=== PATIENT | male | born 1950 | race Caucasian/White ===

== ENCOUNTER → 2022-06-12 09:12 | Outpatient (BNVA) | payer OTHER, SELFPAY | PROVIDERS: PCP Family Medicine; Visit Provider Student in an Organized Health Care Education/Training Program | DX: Z13.89 Encounter for screening for other disorder (principal) ==

== ENCOUNTER 2023-01-29 08:08 | Outpatient (AMB) | payer OTHER, SELFPAY ==
--- NOTE | 2023-01-29 08:12 | A.OFFVIS_ITS ---
Intake Vital Signs 01/29/23 08:14 Height 5 ft 8 in Weight 165 lb 9.074 oz BMI 25.2 BP 122/88 Blood Pressure Location Rt brachial Position Sitting Pulse 53 Pulse Source Pulse Oximeter Temp 98.2 F Temp Source Skin Pulse Oximetry (%) 99 Oxygen Delivery Method Room Air Intake Visit Reasons: RA/sarcoidosis Intake Note: Here for RA and sarcoidosis follow up. c/o neck pain post PT. ? nerve related Head Operator Sulfide Required: No Accompanied by: Self / Same As Patient Allergies Penicillins Allergy (Severe, Verified 01/29/23 08:12) Anaphylaxis terbinafine [From Lamisil] Allergy (Severe, Verified 01/29/23 08:12) Anaphylaxis amitriptyline Allergy (Intermediate, Verified 01/29/23 08:12) emotional blunting amoxicillin Allergy (Intermediate, Verified 01/29/23 08:12) Hives fluconazole Allergy (Intermediate, Verified 01/29/23 08:12) Muscle cramps gabapentin Allergy (Intermediate, Verified 01/29/23 08:12) Confusion pravastatin Allergy (Intermediate, Verified 01/29/23 08:12) myalgia Medication List - Last Reconciled 01/29/23 by Clint Mckoy MD acetaminophen (Tylenol Extra Strength) 1,000 mg PO Q6H PRN cholecalciferol (vitamin D3) 25 mcg PO DAILY cyclobenzaprine 5 mg PO TID PRN famotidine (Pepcid) 10 mg PO QAM folic acid 1 mg PO DAILY ibuprofen 600 mg PO Q8H PRN lactobacillus combination no.9 (Adult 50 Plus Probiotic) 4,000 mmu cells PO DAILY multivitamin 1 tab PO DAILY omeprazole 10 mg PO BID polyethylene glycol 3350 (Miralax) 17 grams PO DAILY rituximab 100 mg IV .every 4 months HPI HPI Comments History of Present Illness Details This is a 72 year old male with undifferentiated autoimmune connective tissue disease presents for follow-up. Patient received rituximab infusion back in July of 2022 and another infusion in October of 2022. Feels well overall in terms of his peripheral arthritis. Rituximab is ordered by his PCP. Infusions were uneventful. States that 2 months ago he was doing physical therapy and he had abrupt onset of neck pain radiating up to his head causing headaches. He was evaluated by by near [employer] [facility], a CT scan was done and he also received trigger point injections which were mildly helpful. He states that his initial pain was around 8-9 currently his pain is around 3. He states that he gets numbness in his shoulders when sleeping at night. Initial history: This is a 71-year-old male with a past medical history of RA/sarcoidosis, psoriasis, melanoma s/p resection who presents for initial consultation. His previous pool servicer Dr. Soto left the practice. Patient states that since age 26 he would have to attacks of joint pain and stiffness of his hands as well as muscle aches, pains, weakness. [place] At some point more than 10 years ago he was found to have lung pathology, he eventually had a bronchoscopy which showed sarcoidosis. Patient states he has been on numerous DMARDs including methotrexate which was ineffective sulfasalazine which was also ineffective. He states that he also could not tolerate multiple medications due to allergic side effects. The only medication that was helping was rituximab. States he has been on rituximab for 7 years which helps his symptoms dramatically. Currently he gets 1 infusion every 4 months. Last infusion was February of 2022. Patient feels well today. [facility] Medical History Benign paroxysmal positional vertigo GERD (gastroesophageal reflux disease) Inflammatory polyarthritis Inguinal hernia Insomnia Low back pain Lyme arthritis Melanoma Mixed hyperlipidemia Myofascial pain On rituximab therapy Psoriasis Rheumatoid arthritis Sarcoidosis Surgical History Hx of knee surgery Status post surgical removal of malignant neoplasm of skin Family History Mother Biliary tract cancer Sister Cancer Social History Household Members: Spouse Alcohol intake: current Alcohol intake frequency: does not drink Patient Tobacco Use Status: Never used Tobacco Current occupational status: previously employed Current occupation: used to work as a builder Review of Systems ENT Reports neck pain Musc Reports neck pain and Reports numbness Neuro Reports numbness Physical Exam Vital Signs: Last Vital Signs Temp 98.2 F 01/29/23 08:14 Pulse 53 01/29/23 08:14 BP 122/88 01/29/23 08:14 Pulse Ox 99 01/29/23 08:14 Oxygen Delivery Method Room Air 01/29/23 08:14 BMI result Body Mass Index 25.2 Const General: cooperative, healthy appearing and comfortable Nutritional Appearance: average body habitus Orientation/consciousness: patient oriented x3 Limitations: no limitations HEENT Head: Yes normocephalic and Yes atraumatic Resp Effort & Inspection: normal respiratory effort and able to speak in complete sentences Neuro General: patient oriented x3 Extrem Other: Taut muscular band the lower part of his neck posteriorly. Mildly limited range of motion with neck rotation to the right. Positive Spurling's test on the right No active synovitis. Normal gait bilateral nail onychomycosis Assessment & Plan Assessment & Plan (1) Rheumatoid arthritis: Code(s): M06.9 - Rheumatoid arthritis, unspecified Qualifiers: Rheumatoid arthritis location: multiple sites Rheumatoid factor presence: with rheumatoid factor Qualified Code(s): M05.79 - Rheumatoid arthritis with rheumatoid factor of multiple sites without organ or systems involvement Plan: This is a 72-year-old male with a complicated past medical history of an unknown autoimmune rheumatic condition. The working diagnosis is RF positive CCP positive rheumatoid arthritis. Patient is also HLA B27 positive, there is a history of psoriasis and features of sarcoidosis. Per patient he has failed numerous DMARDs in the past. Patient was evaluated at [facility] and [facility] Rheumatology and the proposed plan of action was to do rituximab for rheumatoid arthritis. Per patient he has done very well for the last 7 years on rituximab. Currently he gets 1 g every 4 months. Last infusion was in October 2022. The infusion was uneventful. It is ordered by his PCP. Today patient is doing well overall in terms of his autoimmune condition. Continue rituximab 1 g every 4 months. Next infusion will be in February of 2023 and the following 1 will be in July. Advised patient to get monitoring labs done 2 weeks before his next appointment with me in May, next infusion July 2022 Infusion detail: PREMEDS:? Tylenol 650 mg p.o. Benadryl 50 mg p.o. Methylprednisolone 100 mg IV Infusion:? Normal saline at 125 mL/hr ongoing Rituximab 1000 mg mixed in a 250 mL bag of normal saline in a 4-1 ratio Start the pump at 12.5 mL then increase every 30 minutes by 12.5 mL/hour max rate 100 mL/hour No post meds Follow-up in 4 months (2) Neck muscle spasm: Code(s): M62.838 - Other muscle spasm Plan: Likely cervicogenic in nature. Patient received trigger point injections which provided some relief. Patient gets significant side effects from muscle relaxants. Advised patient to try using salonpas patches. If neck pain persists, follow-up with [facility] Plan I spent 25 minutes reviewing patient's chart, evaluating patient, ordering diagnostic workup, counseling patient and documenting in the chart Orders: Orders Comprehensive Met. Panel 3 Months M06.9 - Rheumatoid arthritis, unspecified C Reactive Protein 3 Months M06.9 - Rheumatoid arthritis, unspecified Complete Blood Count Auto Diff 3 Months M06.9 - Rheumatoid arthritis, unspecified Erythrocyte Sedimentation Rate 3 Months M06.9 - Rheumatoid arthritis, unspecified Immunoglobulins,IgG IgA IgM 3 Months M06.9 - Rheumatoid arthritis, unspecified Protein Electrophoresis, Serum 3 Months M06.9 - Rheumatoid arthritis, unspecified Hepatitis A,B,C Profile 3 Months Z11.59 - Encounter for screening for other viral diseases T Spot TB 3 Months Z11.7 - Encounter for testing for latent tuberculosis infection Coding Level of Care Code Est Pt Level 4 (14996) Diagnoses Rheumatoid arthritis M05.79 Rheumatoid arthritis location: multiple sites Rheumatoid factor presence: with rheumatoid factor Neck muscle spasm M62.838
[2023-01-29 08:14] VITALS: BP 122/88; PULSE 53; TEMP 36.8; O2SAT 99; BMI 25.2
== END 2023-01-29 08:34 | disposition home or self-care (01) ==
PROVIDERS: PCP Family Medicine; Visit Provider Student in an Organized Health Care Education/Training Program
DX: M05.79 Rheumatoid arthritis with rheumatoid factor of multiple sites without organ or systems involvement (principal); M62.838 Other muscle spasm
CPT/HCPCS: 99214

== ENCOUNTER → 2023-01-29 08:08 | Outpatient (BNVA) | payer OTHER, SELFPAY | PROVIDERS: PCP Family Medicine; Visit Provider Student in an Organized Health Care Education/Training Program ==

== ENCOUNTER 2023-06-01 09:22 | Outpatient (AMB) | payer OTHER, SELFPAY ==
[2023-06-01 09:26] VITALS: BP 100/80; PULSE 45; TEMP 36.1; O2SAT 100; BMI 25.8
--- NOTE | 2023-06-01 09:26 | A.OFFVIS_ITS ---
Intake Vital Signs 06/01/23 09:26 Height 5 ft 8 in Weight 169 lb 15.622 oz BMI 25.8 BP 100/80 Blood Pressure Location Rt brachial Position Sitting Pulse 45 L Pulse Source Pulse Oximeter Temp 97 F Temp Source Skin Pulse Oximetry (%) 100 Oxygen Delivery Method Room Air Intake Visit Reasons: RA Intake Note: Pt last seen 01/29/23 presents today for follow up and test results. Bakery Assistant Required: No Accompanied by: Self / Same As Patient Allergies Penicillins Allergy (Severe, Verified 06/01/23 09:29) Anaphylaxis terbinafine [From Lamisil] Allergy (Severe, Verified 06/01/23 09:29) Anaphylaxis amitriptyline Allergy (Intermediate, Verified 06/01/23 09:29) emotional blunting amoxicillin Allergy (Intermediate, Verified 06/01/23 09:29) Hives fluconazole Allergy (Intermediate, Verified 06/01/23 09:29) Muscle cramps gabapentin Allergy (Intermediate, Verified 06/01/23 09:29) Confusion pravastatin Allergy (Intermediate, Verified 06/01/23 09:29) myalgia rituximab-pvvr [From Ruxience] Allergy (Intermediate, Verified 06/01/23 09:29) Anaphylaxis Medication List - Last Reconciled 06/01/23 by Clint Mckoy MD acetaminophen (Tylenol Extra Strength) 1,000 mg PO Q6H PRN cholecalciferol (vitamin D3) 25 mcg PO DAILY cyclobenzaprine 5 mg PO TID PRN famotidine (Pepcid) 10 mg PO QAM folic acid 1 mg PO DAILY ibuprofen 600 mg PO Q8H PRN lactobacillus combination no.9 (Adult 50 Plus Probiotic) 4,000 mmu cells PO DAILY multivitamin 1 tab PO DAILY omeprazole 10 mg PO BID polyethylene glycol 3350 (Miralax) 17 grams PO DAILY rituximab 100 mg IV .every 4 months HPI HPI Comments History of Present Illness Details This is a 72 year old male with undifferentiated autoimmune connective tissue disease presents for follow-up. Patient's insurance did not approve Rituxan infusion, Ruxience was on formulary, he received the infusion back in February and believes that he had some allergic side effects including tingling of his lips and hard palate, GI discomfort, weak urinary stream. Afterwards his PCP was able to approve Rituxan infusion. He did get the Rituxan infusion 2 or 3 weeks afterwards. I had prescribed him a prednisone taper which somewhat helped the tingling of his lips and the numbness of the roof of his mouth. He states that some foods get stuck in his throat such as crackers. He also has been having some GI discomfort and pain. States that earlier this year he had endoscopy and colonoscopy which according to him were unremarkable States that currently he has a weak urinary stream as well as urinary urgency. Also with urination he will get some GI discomfort and pain. He was evaluated by his PCP and had a bladder and kidney ultrasound and a kidney cyst was found as well as kidney stone. He will follow up soon with his PCP. He also has tingling in his fingertips. This started after his next tab after physical therapy this year. He will be following up with a customer retention specialist and the plan is to get a steroid injection. Initial history: This is a 71-year-old male with a past medical history of RA/sarcoidosis, psoriasis, melanoma s/p resection who presents for initial consultation. His previous oracle soa developer Dr. Soto left the practice. Patient states that since age 26 he would have to attacks of joint pain and stiffness of his hands as well as muscle aches, pains, weakness. He has seen multiple specialists [place] At some point more than 10 years ago he was found to have lung pathology, he eventually had a bronchoscopy which showed sarcoidosis. Patient states he has been on numerous DMARDs including methotrexate which was ineffective sulfasalazine which was also ineffective. He states that he also could not tolerate multiple medications due to allergic side effects. The only medication that was helping was rituximab. States he has been on rituximab for 7 years which helps his symptoms dramatically. Currently he gets 1 infusion every 4 months. Last infusion was February of 2022. Patient feels well today. [facility] Medical History On rituximab therapy Psoriasis Myofascial pain Low back pain Inflammatory polyarthritis Rheumatoid arthritis Inguinal hernia GERD (gastroesophageal reflux disease) Benign paroxysmal positional vertigo Insomnia Mixed hyperlipidemia Melanoma Sarcoidosis Lyme arthritis Surgical History Status post surgical removal of malignant neoplasm of skin Hx of knee surgery Family History Mother Biliary tract cancer Sister Cancer Social History Household Members: Spouse Alcohol intake: never Patient Tobacco Use Status: Never used Tobacco Current occupational status: previously employed Current occupation: used to work as a builder Review of Systems ENT Reports dysphagia and Reports neck pain GI Reports abdominal pain and Reports dysphagia Reports oliguria, Reports difficulty urinating, Reports urinary frequency and Reports urinary urgency Musc Reports neck pain and Reports numbness Neuro Reports numbness Physical Exam Vital Signs: Last Vital Signs Temp 97 F 06/01/23 09:26 Pulse 45 L 06/01/23 09:26 BP 100/80 06/01/23 09:26 Pulse Ox 100 06/01/23 09:26 Oxygen Delivery Method Room Air 06/01/23 09:26 BMI result Body Mass Index 25.8 Const General: cooperative, healthy appearing and comfortable Nutritional Appearance: average body habitus Orientation/consciousness: patient oriented x3 Limitations: no limitations HEENT Head: Yes normocephalic and Yes atraumatic Resp Effort & Inspection: normal respiratory effort and able to speak in complete sentences Neuro General: patient oriented x3 Extrem Other: No active synovitis. Normal gait bilateral nail onychomycosis Assessment & Plan Assessment & Plan (1) Rheumatoid arthritis: Code(s): M06.9 - Rheumatoid arthritis, unspecified Qualifiers: Rheumatoid arthritis location: multiple sites Rheumatoid factor presence: with rheumatoid factor Qualified Code(s): M05.79 - Rheumatoid arthritis with rheumatoid factor of multiple sites without organ or systems involvement Plan: This is a 72-year-old male with a complicated past medical history of an unknown autoimmune rheumatic condition. The working diagnosis is RF positive CCP positive rheumatoid arthritis. Patient is also HLA B27 positive +++SSa, there is a history of psoriasis and features of sarcoidosis. Per patient he has failed numerous DMARDs in the past. Patient was evaluated at [facility] [place] and the proposed plan of action was to do rituximab for rheumatoid arthritis. Per patient he has done very well for the last 7 years on rituximab. he gets 1 g every 4 months. Patient's insurance did not approve Rituxan infusion, Ruxience was? on formulary, he received the infusion back in February and believes that he had some allergic side effects including tingling of his lips and hard palate, GI discomfort, weak urinary stream.? Afterwards his PCP was able to approve Rituxan infusion.? He did get the Rituxan infusion 2 or 3 weeks afterwards. Since his right Ruxience infusion patient has been having multiple symptoms that he attributes to an allergy to Ruxience. Including tingling of his lips and roof of mouth, dysphagia, GI discomfort, weak urinary stream. I do not see any evidence of an active autoimmune condition upon my evaluation today. I suggest that patient speak to his PCP. Consider urology evaluation. Patient will be going to a customer retention specialist for an epidural injection soon. He had an endoscopy and colonoscopy earlier this year and according to patient it was unremarkable Infusion detail: PREMEDS:? Tylenol 650 mg p.o. Benadryl 50 mg p.o. Methylprednisolone 100 mg IV Infusion:? Normal saline at 125 mL/hr ongoing Rituximab 1000 mg mixed in a 250 mL bag of normal saline in a 4-1 ratio Start the pump at 12.5 mL then increase every 30 minutes by 12.5 mL/hour max rate 100 mL/hour Next Rituxan infusion should be July of 2023 Follow-up in 6 months Plan I spent 25 minutes reviewing patient's chart, evaluating patient, counseling patient and documenting in the chart Coding Level of Care Code Est Pt Level 4 (00133) Diagnoses Rheumatoid arthritis involving multiple sites with positive rheumatoid factor M05.79 Rheumatoid arthritis location: multiple sites Rheumatoid factor presence: with rheumatoid factor
== END 2023-06-01 10:05 | disposition home or self-care (01) ==
PROVIDERS: PCP Family Medicine; Visit Provider Student in an Organized Health Care Education/Training Program
DX: M05.79 Rheumatoid arthritis with rheumatoid factor of multiple sites without organ or systems involvement (principal)
CPT/HCPCS: 99214

== ENCOUNTER → 2023-06-01 09:22 | Outpatient (BNVA) | payer OTHER, SELFPAY | PROVIDERS: PCP Family Medicine; Visit Provider Student in an Organized Health Care Education/Training Program ==

== ENCOUNTER 2023-08-23 15:29 | Outpatient (AMB) | payer OTHER, SELFPAY ==
--- NOTE | 2023-08-23 15:31 | A.OFFVIS_ITS ---
Intake Vital Signs 08/23/23 15:46 Height 5 ft 8 in Weight 171 lb 8.314 oz BMI 26.1 BP 140/82 H Blood Pressure Location Lt brachial Position Sitting Pulse 71 Pulse Source Pulse Oximeter Temp 98.1 F Temp Source Skin Pulse Oximetry (%) 98 Oxygen Delivery Method Room Air Intake Visit Reasons: RA Intake Note: Patient last seen 06/01/23 presents today for follow up. Legal Collector Required: No Allergies Penicillins Allergy (Severe, Verified 08/23/23 15:47) Anaphylaxis terbinafine [From Lamisil] Allergy (Severe, Verified 08/23/23 15:47) Anaphylaxis amitriptyline Allergy (Intermediate, Verified 08/23/23 15:47) emotional blunting amoxicillin Allergy (Intermediate, Verified 08/23/23 15:47) Hives fluconazole Allergy (Intermediate, Verified 08/23/23 15:47) Muscle cramps gabapentin Allergy (Intermediate, Verified 08/23/23 15:47) Confusion pravastatin Allergy (Intermediate, Verified 08/23/23 15:47) myalgia rituximab-pvvr [From Ruxience] Allergy (Intermediate, Verified 08/23/23 15:47) Anaphylaxis Medication List - Last Reconciled 08/23/23 by Clint Mckoy MD acetaminophen (Tylenol Extra Strength) 1,000 mg PO Q6H PRN cholecalciferol (vitamin D3) 25 mcg PO DAILY cyclobenzaprine 5 mg PO TID PRN famotidine (Pepcid) 10 mg PO QAM folic acid 1 mg PO DAILY ibuprofen 600 mg PO Q8H PRN lactobacillus combination no.9 (Adult 50 Plus Probiotic) 4,000 mmu cells PO DAILY multivitamin 1 tab PO DAILY omeprazole 10 mg PO BID polyethylene glycol 3350 (Miralax) 17 grams PO DAILY rituximab 100 mg IV .every 4 months HPI HPI Comments History of Present Illness Details This is a 72 year old male with undifferentiated autoimmune connective tissue disease presents for follow-up. Patient received Rituxan infusion back in April. He states that he continues to have the same symptoms that he has been having since getting the Ruxience infusion. He has been having diffuse muscle pain, more severe in his lower back, thighs, calves. He gets charley horses, usually worse at night. He denies any swollen joints. Is having stomach upset. States that he feels healthy and does not have any change in his strength. He walks 15 miles a week. He has difficulty falling asleep. Initial history: This is a 71-year-old male with a past medical history of RA/sarcoidosis, psoriasis, melanoma s/p resection who presents for initial consultation. His previous diet technician registered Dr. Soto left the practice. Patient states that since age 26 he would have to attacks of joint pain and stiffness of his hands as well as muscle aches, pains, weakness. He has seen multiple specialists throughout the [place]. At some point more than 10 years ago he was found to have lung pathology, he eventually had a bronchoscopy which showed sarcoidosis. Patient states he has been on numerous DMARDs including methotrexate which was ineffective sulfasalazine which was also ineffective. He states that he also could not tolerate multiple medications due to allergic side effects. The only medication that was helping was rituximab. States he has been on rituximab for 7 years which helps his symptoms dramatically. Currently he gets 1 infusion every 4 months. Last infusion was February of 2022. Patient feels well today. [facility] Medical History On rituximab therapy Psoriasis Myofascial pain Low back pain Inflammatory polyarthritis Rheumatoid arthritis Inguinal hernia GERD (gastroesophageal reflux disease) Benign paroxysmal positional vertigo Insomnia Mixed hyperlipidemia Melanoma Sarcoidosis Lyme arthritis Surgical History Status post surgical removal of malignant neoplasm of skin Hx of knee surgery Family History Mother Biliary tract cancer Sister Cancer Social History Household Members: Spouse Alcohol intake: never Patient Tobacco Use Status: Never used Tobacco Current occupational status: previously employed Current occupation: used to work as a builder Review of Systems GI Reports abdominal pain Musc Reports myalgias, Reports arthralgias, Denies joint swelling, Reports muscle cramps, Reports muscle weakness and Reports stiffness Physical Exam Const General: cooperative, healthy appearing and comfortable Nutritional Appearance: average body habitus Orientation/consciousness: patient oriented x3 Limitations: no limitations HEENT Head: Yes normocephalic and Yes atraumatic Resp Effort & Inspection: normal respiratory effort and able to speak in complete sentences Auscultation: clear to auscultation bilaterally Cardio Rate: regular rate Rhythm: regular rhythm Neuro General: patient oriented x3 Extrem Other: No active synovitis. Normal gait Left hand nail onychomycosis Muscle strength 5/5 proximally all 4 extremities Negative straight leg raise test bilaterally Assessment & Plan Assessment & Plan (1) Rheumatoid arthritis: Code(s): M06.9 - Rheumatoid arthritis, unspecified Qualifiers: Rheumatoid arthritis location: multiple sites Rheumatoid factor presence: with rheumatoid factor Qualified Code(s): M05.79 - Rheumatoid arthritis with rheumatoid factor of multiple sites without organ or systems involvement Plan: This is a 72-year-old male with a complicated past medical history of an unknown autoimmune rheumatic condition. The working diagnosis is RF positive CCP positive rheumatoid arthritis. Patient is also HLA B27 positive +++SSa, there is a history of psoriasis and features of sarcoidosis. Per patient he has failed numerous DMARDs in the past. Patient was evaluated at [facility] and [facility] Rheumatology and the proposed plan of action was to do rituximab for rheumatoid arthritis. Per patient he has done very well for the last 7 years on rituximab. he gets 1 g every 4 months. Patient's insurance did not approve Rituxan infusion, Ruxience was? on formulary, he received the infusion back in February and believes that he had some allergic side effects including tingling of his lips and hard palate, GI discomfort, weak urinary stream.? Afterwards his PCP was able to approve Rituxan infusion.? He did get the Rituxan infusion 2 or 3 weeks afterwards. Since his right Ruxience infusion patient has been having multiple symptoms that he attributes to an allergy to Ruxience. Including generalized muscle weakness, muscle pain, muscle cramping, inability sleep, generalized fatigue, stomach upset, poor appetite. Upon evaluation I do not see any active synovitis. Has normal muscle strength. His weight is stable. His symptoms now are more consistent with fibromyalgia. I had a long conversation today about patient's autoimmune disease verses fibromyalgia. Likely his underlying autoimmune rheumatic condition is well controlled with Rituxan. His symptoms at this point are likely related to fibromyalgia. Less likely an allergic reaction to Ruxience. Infusion detail: PREMEDS:? Tylenol 650 mg p.o. Benadryl 50 mg p.o. Methylprednisolone 100 mg IV Infusion:? Normal saline at 125 mL/hr ongoing Rituximab 1000 mg mixed in a 250 mL bag of normal saline in a 4-1 ratio Start the pump at 12.5 mL then increase every 30 minutes by 12.5 mL/hour max rate 100 mL/hour Follow-up in 5 months Plan I spent 25 minutes reviewing patient's chart, evaluating patient, counseling patient and documenting in the chart Coding Level of Care Code Est Pt Level 4 (86462) Diagnoses Rheumatoid arthritis involving multiple sites with positive rheumatoid factor M05.79 Rheumatoid arthritis location: multiple sites Rheumatoid factor presence: with rheumatoid factor
[2023-08-23 15:46] VITALS: BP 140/82; PULSE 71; TEMP 36.7; O2SAT 98; BMI 26.1
== END 2023-08-23 16:13 | disposition home or self-care (01) ==
PROVIDERS: PCP Family Medicine; Visit Provider Student in an Organized Health Care Education/Training Program
DX: M05.79 Rheumatoid arthritis with rheumatoid factor of multiple sites without organ or systems involvement (principal)
CPT/HCPCS: 99214

== ENCOUNTER → 2023-08-23 15:29 | Outpatient (BNVA) | payer OTHER, SELFPAY | PROVIDERS: PCP Family Medicine; Visit Provider Student in an Organized Health Care Education/Training Program ==

== ENCOUNTER 2023-12-20 08:50 | Outpatient (AMB) | payer OTHER, SELFPAY ==
--- NOTE | 2023-12-20 08:53 | A.OFFVIS_ITS ---
Vital Signs 12/20/23 08:56 Height 5 ft 8 in Weight 167 lb 8.821 oz BMI 25.5 BP 140/82 H Blood Pressure Location Rt brachial Position Sitting Pulse 54 Pulse Source Pulse Oximeter Pulse Oximetry (%) 99 Oxygen Delivery Method Room Air Intake Visit Reasons: RA/CM Intake Note: Patient presents for RA. Allergies Penicillins Allergy (Severe, Verified 12/20/23 08:56) Anaphylaxis terbinafine [From Lamisil] Allergy (Severe, Verified 12/20/23 08:56) Anaphylaxis amitriptyline Allergy (Intermediate, Verified 12/20/23 08:56) emotional blunting amoxicillin Allergy (Intermediate, Verified 12/20/23 08:56) Hives fluconazole Allergy (Intermediate, Verified 12/20/23 08:56) Muscle cramps gabapentin Allergy (Intermediate, Verified 12/20/23 08:56) Confusion pravastatin Allergy (Intermediate, Verified 12/20/23 08:56) myalgia rituximab-pvvr [From Ruxience] Allergy (Intermediate, Verified 12/20/23 08:56) Anaphylaxis Medication List - Last Reconciled 12/20/23 by Clint Mckoy MD acetaminophen (Tylenol Extra Strength) 1,000 mg PO Q6H PRN cholecalciferol (vitamin D3) 25 mcg PO DAILY cyclobenzaprine 5 mg PO TID PRN famotidine (Pepcid) 10 mg PO QAM folic acid 1 mg PO DAILY ibuprofen 600 mg PO Q8H PRN lactobacillus combination no.9 (Adult 50 Plus Probiotic) 4,000 mmu cells PO DAILY multivitamin 1 tab PO DAILY omeprazole 10 mg PO BID polyethylene glycol 3350 (Miralax) 17 grams PO DAILY rituximab 100 mg IV .every 4 months HPI Comments Details: This is a 73 year old male with undifferentiated autoimmune connective tissue disease presents for follow-up. Patient received Rituxan infusion 3-4 months ago likely August of 2023. States that he feels quite well overall. No complaints today. He went to a physical therapy program to work on his balance and strength. With improvement. Started taking fluconazole for his nails, believes they are working. Has been taking it for the last 3 months Initial history: This is a 71-year-old male with a past medical history of RA/sarcoidosis, psoriasis, melanoma s/p resection who presents for initial consultation. His previous link wire fabric machine operator Dr. Soto left the practice. Patient states that since age 26 he would have to attacks of joint pain and stiffness of his hands as well as muscle aches, pains, weakness. [place] At some point more than 10 years ago he was found to have lung pathology, he eventually had a bronchoscopy which showed sarcoidosis. Patient states he has been on numerous DMARDs including methotrexate which was ineffective sulfasalazine which was also ineffective. He states that he also could not tolerate multiple medications due to allergic side effects. The only medication that was helping was rituximab. States he has been on rituximab for 7 years which helps his symptoms dramatically. Currently he gets 1 infusion every 4 months. Last infusion was February of 2022. Patient feels well today. [facility] Medical History On rituximab therapy Psoriasis Myofascial pain Low back pain Inflammatory polyarthritis Rheumatoid arthritis Inguinal hernia GERD (gastroesophageal reflux disease) Benign paroxysmal positional vertigo Insomnia Mixed hyperlipidemia Melanoma Sarcoidosis Lyme arthritis Surgical History Status post surgical removal of malignant neoplasm of skin Hx of knee surgery Family History Mother Biliary tract cancer Sister Cancer Social History Household Members: Spouse Alcohol intake: never Patient Tobacco Use Status: Never used Tobacco Current occupational status: previously employed Current occupation: used to work as a builder Review of Systems Musc Denies back pain, Denies arthralgias, Denies joint swelling, Denies muscle cramps, Denies muscle weakness and Denies stiffness Physical Exam Vital Signs: Last Vital Signs Pulse 54 12/20/23 08:56 BP 140/82 H 12/20/23 08:56 Pulse Ox 99 12/20/23 08:56 Oxygen Delivery Method Room Air 12/20/23 08:56 BMI result Body Mass Index 25.5 Const General: cooperative, healthy appearing and comfortable Nutritional Appearance: average body habitus Orientation/consciousness: patient oriented x3 Limitations: no limitations HEENT Head: Yes normocephalic and Yes atraumatic Resp Effort & Inspection: normal respiratory effort and able to speak in complete sentences Auscultation: clear to auscultation bilaterally Cardio Rate: regular rate Rhythm: regular rhythm Neuro General: patient oriented x3 Extrem Other: No active synovitis. Normal gait Muscle strength 5/5 proximally all 4 extremities Negative straight leg raise test bilaterally Assessment & Plan Assessment & Plan (1) Rheumatoid arthritis: Code(s): M06.9 - Rheumatoid arthritis, unspecified Category: Medical Qualifiers: Rheumatoid arthritis location: multiple sites Rheumatoid factor presence: with rheumatoid factor Qualified Code(s): M05.79 - Rheumatoid arthritis with rheumatoid factor of multiple sites without organ or systems involvement Plan: This is a 72-year-old male with a complicated past medical history of an unknown autoimmune rheumatic condition. The working diagnosis is RF positive CCP positive rheumatoid arthritis. Patient is also HLA B27 positive +++SSa, there is a history of psoriasis and features of sarcoidosis. Per patient he has failed numerous DMARDs in the past. Patient was evaluated at [facility] and the proposed plan of action was to do rituximab for rheumatoid arthritis. Per patient he has done very well for the last 8 years on rituximab. he gets 1 g every 4 months. Patient had side effects to Rituxan infusion once. This was not repeated and since then he has been receiving Rituxan infusion. He is feeling quite well. Believes last rituximab infusion was 08/2023 Patient doing quite well today. No active synovitis. Discussed with patient that we should attempt to space out his rituximab. I think his next Rituxan should be done 5 months from the most recent infusion. If doing well afterwards, who will consider doing it every 6 months. Check labs before next infusion Infusion detail: PREMEDS:? Tylenol 650 mg p.o. Benadryl 50 mg p.o. Methylprednisolone 100 mg IV Infusion:? Normal saline at 125 mL/hr ongoing Rituximab 1000 mg mixed in a 250 mL bag of normal saline in a 4-1 ratio Start the pump at 12.5 mL then increase every 30 minutes by 12.5 mL/hour max rate 100 mL/hour Follow-up in 5 months Plan I spent 25 minutes reviewing patient's chart, evaluating patient, ordering diagnostic workup, counseling patient and documenting in the chart Orders: Orders Comprehensive Met. Panel Today M05.79 - Rheumatoid arthritis with rheumatoid factor of multiple sites without organ or systems involvement Erythrocyte Sedimentation Rate Today M05.79 - Rheumatoid arthritis with rheumatoid factor of multiple sites without organ or systems involvement T Spot TB Today Z11.7 - Encounter for testing for latent tuberculosis infection Complete Blood Count Auto Diff Today M05.79 - Rheumatoid arthritis with rheumatoid factor of multiple sites without organ or systems involvement C Reactive Protein Today M05.79 - Rheumatoid arthritis with rheumatoid factor of multiple sites without organ or systems involvement Immunofixation Pnl, Serum Today M05.79 - Rheumatoid arthritis with rheumatoid factor of multiple sites without organ or systems involvement Protein Electrophoresis, Serum Today M05.79 - Rheumatoid arthritis with rh eumatoid factor of multiple sites without organ or systems involvement Coding Level of Care Code Est Pt Level 4 (40345) Diagnoses Rheumatoid arthritis involving multiple sites with positive rheumatoid factor M05.79 Rheumatoid arthritis location: multiple sites Rheumatoid factor presence: with rheumatoid factor
[2023-12-20 08:56] VITALS: BP 140/82; PULSE 54; O2SAT 99; BMI 25.5
== END 2023-12-20 09:22 | disposition home or self-care (01) ==
PROVIDERS: PCP Family Medicine; Visit Provider Student in an Organized Health Care Education/Training Program
DX: M05.79 Rheumatoid arthritis with rheumatoid factor of multiple sites without organ or systems involvement (principal)
CPT/HCPCS: 99214

== ENCOUNTER → 2023-12-20 08:50 | Outpatient (BNVA) | payer OTHER, SELFPAY | PROVIDERS: PCP Family Medicine; Visit Provider Student in an Organized Health Care Education/Training Program ==

== ENCOUNTER 2025-03-28 13:46 | Outpatient (AMB) | payer OTHER, SELFPAY ==
[2025-03-28 14:14] VITALS: BMI 25.1
--- NOTE | 2025-03-28 14:14 | A.SPINEOV_ITS ---
Vital Signs 03/28/25 14:14 Height 5 ft 8 in Weight 165 lb BMI 25.1 Intake Visit Reasons: chronic back pain Intake Note: Mr. Villeda is here today c/o Chronic back pain. Preanalytics Team Lead Required: No Allergies Penicillins Allergy (Severe, Verified 03/28/25 14:15) Anaphylaxis terbinafine (From Lamisil) Allergy (Severe, Verified 03/28/25 14:15) Anaphylaxis amitriptyline Allergy (Intermediate, Verified 12/20/23 08:56) emotional blunting amoxicillin Allergy (Intermediate, Verified 12/20/23 08:56) Hives fluconazole Allergy (Intermediate, Verified 12/20/23 08:56) Muscle cramps gabapentin Allergy (Intermediate, Verified 12/20/23 08:56) Confusion pravastatin Allergy (Intermediate, Verified 12/20/23 08:56) myalgia rituximab-pvvr (From Ruxience) Allergy (Intermediate, Verified 12/20/23 08:56) Anaphylaxis Physical Exam Vital Signs: BMI result Body Mass Index 25.1 Assessment & Plan Assessment & Plan (1) Lumbar back pain with radiculopathy affecting right lower extremity: Code(s): M54.16 - Radiculopathy, lumbar region Category: Medical Plan Dear colleague Thank you for referring Jeff Villeda to the office today with a chief complaint of back pain and right leg pain. HPI: This 74-year-old male has a chronic history of severe low back pain that occurs proximally every 2 years. The episode lasted few days and we will cover without residual pain. This time it is different. Approximately 2 and half months ago he again developed severe back pain only now associated with right ventral thigh pain. The thigh pain is worse in the back pain. Initially, he had severe pain when he changed position from sitting to standing but with a epidural steroid injection this problem has resolved. The pain has improved but he continues the linger and he also noticed mild weakness of his right proximal leg. He is in physical therapy. He walks 3 miles a day. The following conservative treatment options were tried without success antiinflammatories, tylenol, physician guided home exercise plan, cortisone shots PMH: Possible autoimmune disease with intermittent swelling of several joints. Medications: Rituxan, vitamin-D and calcium, Pepcid, ibuprofen p.r.n. Allergies: Penicillin, Lamisil Social history: . Physical Exam: Pleasant male. On inspection of the lumbar spine there are no deformities. He is able to get out of the chair with his arms crossed without difficulties. On individual motor testing there are no deficits. Sensory exam is intact. Reflexes are symmetrically intact. No pathological reflexes. His gait is undisturbed Radiological Studies: MRI done at [facility] on 02/07/2025 shows mild degenerative disc disease at L2-3 with mild spinal stenosis. There is no nerve compression. The images were reviewed in detail with the patient in his . Impression/Plan: This patient developed acute lumbago which is recovering much slowly as anticipated. In addition he has noncompressive lumbar radiculopathy. There is no surgical cause for symptoms and it may have to do with the possibility of autoimmune problems. He is scheduled to undergo a 2nd injection. I am optimistic that his symptoms will fully recover again in the near future. Thank you for allowing me to participate in your patients care. total time spent was 50 minutes in counseling ,coordination of plan, personal review of imaging, surgical decision making and subsequent plan Allen Mccallum MD, PhD Spine Fellowship Trained Neurosurgeon Director, [facility] Coding Level of Care Code New Pt Level 4 (50064) Diagnoses Lumbar back pain with radiculopathy affecting right lower extremity M54.16
--- OUTSIDE RECORDS SUMMARY | 2025-03-28 17:36 | XMS_ITS | Encounter Summary ---
Author Organization [facility] Address [address] [place] [phone] Phone Care Team Providers Care Planer Stone Name Role Phone Eugene Oglesby MD Unavailable [phone] Emeli Greenwood MD Primary Care Provider [phone] Encounter Details Date Type Department Care Team (Late st Contact Info) Description 06/29/2024 Procedure Pass [address] [place] [address] Social History Tobacco Use Types Packs/Day Years Used Date Smoking Tobacco: Never Smokeless Tobacco: Never Alcohol Use Standard Drinks/Week Comments Never 0 (1 standard drink = 0.6 oz pur e alcohol) Education Answer Date Recorded Are you interested in more education? Not on anne e 09/24/2022 Are you concerned about learning? Not on file 09/24/2022 No 09/24/2022 No 09/24/2022 Digital Access Answer Date Recorded No 10/26/2022 No 10/26/2022 Reliable internet access at home? Not on file 10/26/2022 Device with a working camera? 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, [address] [phone] [email or web address] 06/04/2025 8:30 AM EST Infusion [facility] [address] [place] [address] Marsha Power MD, MPH [address] [place] [address], [address] [phone] [email or web address] documented as of this encounter Visit Diagnoses Not on filedocumented in this encounter Care Teams Planer Stone Relationship Specialty Start Date End Date Emeli Greenwood MD [address] [place] [phone] [email or web address] PCP - General Family Medicine 02/06/22 Eugene Oglesby MD [email or web address] Historical LMR Provider 03/16/17 documented as of this encounter Additional Source Comments The information contained in this document represents components of the legal health record. It is not the complete legal health record.[facility]
--- OUTSIDE RECORDS SUMMARY | 2025-03-28 17:36 | XMS_ITS | Encounter Summary ---
Author Organization Located [facility] Address [address] [place] [address] [place] [address] Phone Care Team Providers Care Computer Repair Technician Name Role Phone Eugene Oglesby MD Unavailable [phone] Emeli Greenwood MD Primary Care Provider [phone] Reason for Referral * MRI/CAT Scan - Closed Specialty Diagnoses / Procedures Referred By Contac t Referred To Contact Radiology Diagnoses Cervical radiculopathy Procedures MRI Cervical Spine CHG MRI, CERV SPINE CHG MRI, CERV SPINE CONTRAST CHG MRI, CERV SPINE COMBO Chris Gabriel DO [address] [place] [phone] Phone: tel: fax: [email or web address] Referral ID Status Reason Start Date Expiration Date Visits Re quested Visits Authorized [id number] Closed 06/22/2024 07/21/2024 1 1 Encounter Details Date Type Department Care Team (Latest Contact Info) Description 06/22/2024 Transcribe Orders Virtual Department [address] [place] [address] Chris Gabriel DO [address] [place] [phone] [email or web address] Cervical radiculopathy (Primary Dx) Social History Tobacco Use Types Packs/Day Years [...] Description 05/21/2025 2:10 PM EST Office Visit [facility] Rheumatology [address] [place] [address] Marsha Power MD, MPH [address] [place] [phone] 06/04/2025 8:30 AM EST Infusion [facility] Infusion Center [address] [place] [address] Marsha Power MD, MPH [address] [place] [phone] documented as of this encounter Results * MRI CERVICAL SPINE (NEURO) FOCUS WITHOUT CONTRAST (07/12/2024 8:26 AM EST) Anatomical Region Laterality Modality C-spine Magnetic Resonan ce 07/12/2024 11:1 9 AM EST Impressions 07/12/2024 11:28 AM EST 1. Multilevel degenerative disc disease changes of the cervical spine as detailed above, not significantly changed compared to prior study, with mild spinal canal stenosis at C5-C6 and C6-C7 levels. Varying degrees of bilateral neural foramina narrowing as above. Narrative 07/12/2024 11:28 AM EST MRI CERVICAL SPINE (NEURO) FOCUS WITHOUT CONTRAST Referring clinician's provided indication for this examination in Epic: Outside Radiology Order; cervical radiculopathy TECHNIQUE: MRI CERVICAL SPINE (NEURO) FOCUS WITHOUT CONTRAST Multi-sequence, multi-planar MRI of the cervical spine was performed without intravenous contrast. COMPARISON: MRI CERVICAL SPINE (NEURO) FOCUS WITHOUT CONTRAST FINDINGS: CERVICAL SPINE: Alignment and Vertebrae: There is normal cervical lordosis. There is no spondylolisthesis. Vertebral body heights are maintained without evidence of compression fracture. Marrow: No bone marrow replacing lesion. Discs and Endplates: There is disc desiccation and disc height loss at C5-C6 and C6-C7. Spinal Cord: No spinal cord compression or signal abnormality. Imaged posterior fossa structures are normal. Soft Tissue: The visualized prevertebral soft tissues are unremarkable. The paraspinal musculature is unremarkable. Findings by level: C2-C3: There is mild diffuse disc bulge with bilateral uncovertebral hypertrophy and left more than right bilateral facet arthropathy, resulting in moderate left and mild right neural foramina narrowing. There is no significant spinal canal stenosis. Overall, degenerative disc disease changes have not significantly changed compared to prior study. C3-C4: There is diffuse disc bulge with bilateral uncovertebral hypertrophy and left more dominant right bilateral facet arthropathy, resulting and moderate left and mild right neural foramina narrowing. There is no significant spinal canal stenosis. Overall, degenerative disc disease changes have not significantly changed compared to prior study. C4-C5: There is mild diffuse disc bulge with bilateral uncovertebral hypertrophy and left more than right bilateral facet arthropathy, resulting in mild bilateral neural foramina narrowing. There is no significant spinal canal stenosis. C5-C6: There is diffuse disc bulge with bilateral uncovertebral hypertrophy and bilateral facet arthropathy, resulting and mild bilateral neural foramina narrowing and mild spinal canal stenosis. Overall, degenerative disc disease changes have not significantly changed compared to prior study. C6-C7: There is diffuse disc bulge with bilateral facet hypertrophy and bilateral uncovertebral hypertrophy, resulting in mild spinal canal stenosis and mild bilateral neural foramina narrowing. Overall, degenerative disc disease changes have not significantly changed compared to prior study. C7-T1: There is mild disc bulge with superimposed central disc protrusion and bilateral uncovertebral hypertrophy as well as mild bilateral facet arthropathy, resulting in mild bilateral neural foramina narrowing and mild spinal canal stenosis. Overall, degenerative disc disease changes have not significantly changed compared to prior study. Procedure Note Brandon Moore MD - 07/12/2024 MRI CERVICAL SPINE (NEURO) FOCUS WITHOUT CONTRAST Referring clinician's provided indication for this examination in Epic:Outside Radiology Order; cervical radiculopathy TECHNIQUE: MRI CERVICAL SPINE (NEURO) FOCUS WITHOUT CONTRAST Multi-sequence, multi-planar MRI of the cervical spine was performedwithout intravenous contrast. COMPARISON: MRI CERVICAL SPINE (NEURO) FOCUS WITHOUT [id number] FINDINGS: CERVICAL SPINE: Alignment and Vertebrae: There is normal cervical lordosis. There is nospondylolisthesis. Vertebral body heights are maintained without evidenceof compression fracture. Marrow: No bone marrow replacing lesion. Discs and Endplates: There is disc desiccation and disc height loss atC5-C6 and C6-C7. Spinal Cord: No spinal cord compression or signal abnormality. Imagedposterior fossa structures are normal. Soft Tissue: The visualized prevertebral soft tissues are unremarkable.The paraspinal musculature is unremarkable. Findings by level: C2-C3: There is mild diffuse disc bulge with bilateral uncovertebralhypertrophy and left more than right bilateral facet arthropathy,resulting in moderate left and mild right neural foramina narrowing. Thereis no significant spinal canal stenosis. Overall, degenerative discdisease changes have not significantly changed compared to prior study. C3-C4: There is diffuse disc bulge with bilateral uncovertebralhypertrophy and left more dominant right bilateral facet arthropathy,resulting and moderate left and mild right neural foramina narrowing.There is no significant spinal canal stenosis. Overall, degenerative discdisease changes have not significantly changed compared to prior study. C4-C5: There is mild diffuse disc bulge with bilateral uncovertebralhypertrophy and left more than right bilateral facet arthropathy,resulting in mild bilateral neural foramina narrowing. There is nosignificant spinal canal stenosis. C5-C6: There is diffuse disc bulge with bilateral uncovertebralhypertrophy and bilateral facet arthropathy, resulting and mild bilateralneural foramina narrowing and mild spinal canal stenosis. Overall,degenerative disc disease changes have not significantly changed comparedto prior study. C6-C7: There is diffuse disc bulge with bilateral facet hypertrophy andbilateral uncovertebral hypertrophy, resulting in mild spinal canalstenosis and mild bilateral neural foramina narrowing. Overall,degenerative disc disease changes have not significantly changed comparedto prior study. C7-T1: There is mild disc bulge with superimposed central disc protrusionand bilateral uncovertebral hypertrophy as well as mild bilateral facetarthropathy, resulting in mild bilateral neural foramina narrowing andmild spinal canal stenosis. Overall, degenerative disc disease changeshave not significantly changed compared to prior study. IMPRESSION: 1. Multilevel degenerative disc disease changes of the cervical spine asdetailed above, not significantly changed compared to prior study, withmild spinal canal stenosis at C5-C6 and C6-C7 levels. Varying degrees ofbilateral neural foramina narrowing as above. us Chris Gabriel DO IMG MR XSPECIALTY Final Resu lt documented in this encounter Visit Diagnoses Diagnosis Cervical radiculopathy- Primary Brachial neuritis or radiculitis nos Cervical radiculopathy Brachial neuritis or radiculitis nos documented in this encounter Care Teams Computer Repair Technician Relationship Specialty Start Date End Date Emeli Greenwood MD [address] [place] [phone] [email or web address] PCP - General Family Medicine 02/06/22 Eugene Oglesby MD [email or web address] Historical LMR Provider 03/16/17 documented as of this encounter Additional Source Comments The information contained in this document represents components of the legal health record. It is not the complete legal health record.[facility]
--- OUTSIDE RECORDS SUMMARY | 2025-03-28 17:36 | XMS_ITS | Clinical Summary ---
Author Organization [facility] Facility Address [address] [place] [address] Care Team Providers Care Interior Design Instructor Name Role Phone Unavailable Primary Care Provider Unavailabl e Social History Tobacco Use Types Packs/Day Years Used Date Smoking Tobacco: Never Assessed Sex and Gender Information Value Date Recorded Sex Assigned at Not on file Legal Sex Male 5:05 PM EST Gender Identity Not on file Sexual Orientation Not on file Plan of Treatment Health Maintenance Due Date Last Done Comments Pneumococcal Vaccine: 50+ Ye ars (1 of 2 - PCV) 10/11/1970 Colorectal Cancer Screening: Annual FOBT 10/11/2000 Colorectal Cancer Screening: Colonoscopy 10/11/2000 Colorectal Cancer Screening: Sigmoidoscopy 10/11/2000 Influenza Vaccine (#1) 2025 Hepatitis B Vaccine Aged Out No longe r eligible based on patient's age to complete this topic Insurance [employer] [place] [id number] [facility]
--- OUTSIDE RECORDS SUMMARY | 2025-03-28 17:36 | XMS_ITS | Encounter Summary ---
Author Organization [facility] Address [address] [facility] [address] [place] [address] Phone Care Team Providers Care Visual Artist Name Role Phone Eugene Oglesby MD Unavailable [phone] Emeli Greenwood MD Primary Care Provider [phone] Encounter Details Date Type Department Care Team (Late Contact Info) Description 02/06/2022 Procedure Pass [facility], Ct Scan - [address] [address] Social History Tobacco Use Types Packs/Day Years Used Date Smoking Tobacco: Never Smokeless Tobacco: Never Alcohol Use Standard Drinks/Week Comments Never 0 (1 standard drink = 0.6 oz pur e alcohol) Sex and Gender Information Value Date Recorded [...] Encounters Date Type Department Care Team (Late Contact Info) Description 05/21/2025 2:10 PM EST Office Visit [facility] [address] [place] [address] Marsha Power MD, MPH [address] [facility], [facility] 203 [place] [address] 06/04/2025 8:30 AM EST Infusion [facility] 30 [place] [address] Marsha Power MD, MPH [address] [place] [address], [address] [place] [address] [email or web address] documented as of this encounter Visit Diagnoses Not on filedocumented in this encounter Care Teams Visual Artist Relationship Specialty Start Date End Date Emeli Greenwood MD [address] [place] [phone] [email or web address] PCP - General Family Medicine 02/06/22 Eugene Oglesby MD [email or web address] Historical LMR Provider 03/16/17 documented as of this encounter Additional Source Comments The information contained in this document represents components of the legal health record. It is not the complete legal health record.[facility]
--- OUTSIDE RECORDS SUMMARY | 2025-03-28 17:36 | XMS_ITS | Encounter Summary ---
Author Organization [facility] Address [address] [facility] [address] [place] [address] Phone Care Team Providers Care Junk Dealer Name Role Phone Eugene Oglesby MD Unavailable [phone] Emeli Greenwood MD Primary Care Provider [phone] Encounter Details Date Type Department Care Team (Late Contact Info) Description 02/09/2022 Procedure Pass [facility] Endoscopy Admitting Dept Virtual Department [address] [place] [address] Social History Tobacco Use Types Packs/Day Years [...] Description 05/21/2025 2:10 PM EST Office Visit [facility] [place] [address] Marsha Power MD, MPH 22 [facility], [address] [address] 06/04/2025 8:30 AM EST Infusion [facility] Medical Infusion Center 30 [place] [address] Marsha Power MD, MPH [address] [place] [address] 203 [place] [address] [email or web address] documented as of this encounter Visit Diagnoses Not on filedocumented in this encounter Care Teams Junk Dealer Relationship Specialty Start Date End Date Emeli Greenwood MD [address] [place] [phone] [email or web address] PCP - General Family Medicine 02/06/22 Eugene Oglesby MD [email or web address] Historical LMR Provider 03/16/17 documented as of this encounter Additional Source Comments The information contained in this document represents components of the legal health record. It is not the complete legal health record.[facility]
--- OUTSIDE RECORDS SUMMARY | 2025-03-28 17:37 | XMS_ITS | Encounter Summary ---
Author Organization [facility] Address [address] [facility] [address] [place] [address] Phone Care Team Providers Care Corporate Quality Manager Name Role Phone Eugene Oglesby MD Unavailable [phone] Eugene Oglesby MD Primary Care Provider [phone] Emeli Greenwood MD Primary Care Provider [phone] Encounter Details Date Type Department Care Team (Late st Contact Info) Description 09/04/2021 Procedure Pass [facility], Ct Scan - [facility] [address] [place] [address] Social History Tobacco Use Types Packs/Day Years Used Date Smoking Tobacco: Never Smokeless Tobacco: Never Sex and Gender Information Value Date Recorded [...] Description 05/21/2025 2:10 PM EST Office Visit [facility] [address] [place] [address] Marsha Power MD, MPH 22 [facility], [facility] 203 [place] [address] 06/04/2025 8:30 AM EST Infusion [facility] 30 [place] [address] Marsha Power MD, MPH [address] [place] [address], [address] [place] [address] [email or web address] documented as of this encounter Visit Diagnoses Not on filedocumented in this encounter Care Teams Corporate Quality Manager Relationship Specialty Start Date End Date Eugene Oglesby MD [email or web address] PCP - General Family Medicine 11/07/18 02/05/22 Emeli Greenwood MD [address] [place] [phone] [email or web address] PCP - General Family Medicine 02/06/22 Eugene Oglesby MD [email or web address] Historical LMR Provider 03/16/17 documented as of this encounter Additional Source Comments The information contained in this document represents components of the legal health record. It is not the complete legal health record.[facility]
--- OUTSIDE RECORDS SUMMARY | 2025-03-28 17:37 | XMS_ITS ---
Author Organization [facility] Address [address] [facility] [address] [place] [address] Phone Care Team Providers Care Edger Liner Name Role Phone Eugene Oglesby MD Unavailable [phone] Emeli Greenwood MD Primary Care Provider [phone] Active Problems Problem Noted Date Diagnosed Date Myalgia 11/03/2024 Assessment & Plan (11/03/2024 12:23 PM EDT): I do not have a rheumatology explanation for the dramatic improvement in myalgias with recent [id number] antihistamine dosing experienced by this patient. I recommend that he seek formal allergy evaluation for input on this interesting pattern. He does appear allergic today. I recommend baseline CK with next routine labs. 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 2013 to current; history of prior failure of multiple DMARDs per chart review Assessment & Plan (11/03/2024 12:25 PM EDT): Continued symptomatic benefit with rituximab with respect to joint pain. There is no joint effusion or synovitis on exam today. Fatigue is very nonspecific, and almost always multifactorial. Previously strongly positive SSA (negative SSB) in this patient suggests nonspecific connective tissue disease rather than Sjogren's, especially in the absence of significant oral and ocular sicca. Recent episodes of prolonged cough and post nasal drip again to suggest allergic rather than inflammatory cause. Assessment & Plan (09/20/2024 12:07 PM EDT): Very atypical presentation and autoantibody profile; underlying rheumatic disease is not easily categorized. Extensive rheumatology records reviewed today; reasonable to continue rituximab given demonstrated efficacy Arthritis, rheumatoid 06/24/2022 Immunosuppressed status 06/04/2016 High risk medication use 06/04/2016 Encounter for monitoring rituximab therapy 06/04 Overview (09/20/2024): H/o allergic rxn to biosimilar with persistence of symptoms for 9 months Assessment & Plan (09/03/2024 6:17 PM EDT): Updated labs prior to next rituximab dose due 09/2024 Psoriasis 09/22/2015 Overview (09/03/2024): B27 pos; quiescent x years Assessment & Plan (09/20/2024 12:06 PM EDT): No psoriasis present on exam today. No objective evidence suggestive of psoriatic arthritis. 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 Other Current Plans RITUXIMAB FLAT DOSE MAINTENANCE* Plan Start Date:06/28/2024 Plan Provider:Marsha Power MD, MPH Linked Problems Rheumatoid arthritis, involv ing unspecified site, unspecified whether rheumatoid factor presentRheumatoid arthritis Treatment Medications riTUXimab (RITUXAN) IVPB 250 mL (250 mg - 1000 mg) (QS Base) Past Treatment and Therapy Plans Resolved Problems Problem Noted Date Diagnosed Date Resolved Date Sarcoidosis 12/13/2012 10/18/2015 Overview (09/22/2015): Sarcoidosis Uncoded H/O Psoriasis 12/13/20122015 Overview (07/21/2014): H/O Psoriasis
--- OUTSIDE RECORDS SUMMARY | 2025-03-28 17:37 | XMS_ITS | Encounter Summary ---
Author Organization [facility] Address [address] [place] [address] [place] [address] Phone Care Team Providers Care Medical Officer Psychiatry Name Role Phone Eugene Oglesby MD Unavailable [phone] Esvin Ta MD Unavailable + [phone] Eugene Oglesby MD Primary Care Provider [phone] Emeli Greenwood MD Primary Care Provider [phone] Encounter Details Date Type Department Care Team (Late st Contact Info) Description 02/17/2019 Ancillary Orders [facility], Department of Neurology [address] [place] [address] Aminta Ryan MD, PhD [address] [place] [address] [email or web address] Social History Tobacco Use Types Packs/Day Years [...] Description 05/21/2025 2:10 PM EST Office Visit [facility] [place] [address] Marsha Power MD, MPH [address] [facility], [address] [place] [address] [email or web address] 06/04/2025 8:30 AM EST Infusion [facility] [address] [place] [address] Marsha Power MD, MPH [address] [facility], [address] [place] [address] [email or web address] documented as of this encounter Visit Diagnoses Not on filedocumented in this encounter Care Teams Medical Officer Psychiatry Relationship Specialty Start Date End Date Eugene Oglesby MD [email or web address] PCP - General Family Medicine 11/07/18 02/05/22 Emeli Greenwood MD [address] [place] [phone] [email or web address] PCP - General Family Medicine 02/06/22 Eugene Oglesby MD [email or web address] Historical LMR Provider 03/16/17 Esvin Ta MD [address] [place] [phone] [email or web address] Historical LMR Provider 03/16/17 06/07/21 documented as of this encounter Additional Source Comments The information contained in this document represents components of the legal health record. It is not the complete legal health record.[facility]
--- OUTSIDE RECORDS SUMMARY | 2025-03-28 17:37 | XMS_ITS | Encounter Summary ---
Author Organization [facility] Address [address] [place] [address] Phone Care Team Providers Care Industrial Recruiter Name Role Phone Eugene Oglesby MD Unavailable [phone] Emeli Greenwood MD Primary Care Provider [phone] Reason for Referral * MRI/CAT Scan - Closed Specialty Diagnoses / Procedures Referred By Contac t Referred To Contact Radiology Diagnoses Cervicalgia Procedures CT Angio Neck CT ANGIO HEAD CHG CT ANGIO,HEAD COMBO,INCL IMAGE PROCESS CHG CT ANGIO,NECK COMBO,INCL IMAGE PROCESS Chris Gabriel DO Phone: tel: fax: mailto:[email or web address] Referral ID Status Reason Start Date Expiration Date Visits Re quested Visits Authorized [id number] Closed 11/11/2022 12/10/2022 1 1 * MRI/CAT Scan - Closed Specialty Diagnoses / Procedures Referred By Contac t Referred To Contact Radiology Diagnoses Nonintractable headache, unspecified chronicity pattern, unspecified headache type Procedures CT Angio Head CHG CT ANGIO,HEAD COMBO,INCL IMAGE PROCESS CHG CT ANGIO,NECK COMBO,INCL IMAGE PROCESS Chris Gabriel DO Phone: tel: fax: mailto:[email or web address] Referral ID Status Reason Start Date Expiration Date Visits Re quested Visits Authorized [id number] Closed 11/11/2022 12/10/2022 1 1 Encounter Details Date Type Department Care Team (Latest Contact Info) Description 11/16/2022 Transcribe Orders Virtual Department [address] [place] [address] Chris Gabriel DO [address] [place] [address] [email or web address] Nonintractable headache, unspecified chronicity pattern, unspecified headache type (Primary Dx); Cervicalgia Social History Tobacco Use Types Packs/Day Years [...] Description 05/21/2025 2:10 PM EST Office Visit [facility] Rheumatology [address] [place] [address] Marsha Power MD, MPH 22 [facility], [facility] [address] [place] [address] 06/04/2025 8:30 AM EST Infusion [facility] [address] [place] [address] Marsha Power MD, MPH [address] [facility], [address] [place] [address] [email or web address] documented as of this encounter Results * CT ANGIO NECK WITH CONTRAST (11/23/2022 12:15 PM EDT) Anatomical Region Laterality Modality Neck Computed Tomogra phy 11/29/2022 9:39 AM EDT Impressions 11/29/2022 9:40 PM EDT No evidence of significant stenosis, dissection, or other abnormality involving the major cervical or intracranial arteries. Narrative 11/29/2022 9:[address] ANGIO HEAD WITH AND WITHOUT CONTRAST, CT ANGIO NECK WITH CONTRAST TECHNIQUE: Multidetector-row CTA of the head and neck was performed before and after administration of intravenous contrast using tailored dose modulation techniques. Images were reconstructed in the axial, coronal, and sagittal planes, including angiographic image post-processing. 3D angiographic images with reformatting and post-processing reconstructions were performed and interpreted. COMPARISON: None FINDINGS: HEAD CT: Brain Parenchyma: Normal. No midline shift, mass effect, parenchymal hemorrhage, or evidence of acute territorial infarct. No enhancing abnormality. Ventricular System and Extra-Axial Spaces: Normal. No extra-axial fluid collections. Basal cisterns are patent. No hydrocephalus. Osseous and Extracranial Structures: No significant paranasal sinus disease. No orbital abnormality. No calvarial lesion is identified. CTA HEAD: Anterior Circulation: Normal. No aneurysm, arteriovenous malformation or thrombosis. The intracranial internal carotid arteries are patent. The anterior and middle cerebral arteries are patent. An anterior communicating artery is present. Posterior Circulation: Normal. No aneurysm, arteriovenous malformation or thrombosis. The intracranial vertebral arteries and the basilar are patent. The posterior cerebral arteries are patent bilaterally. Posterior communicating arteries are present bilaterally. Venous Structures: Normal. No thrombosis. CTA NECK: Aortic Arch and Origin of Major Cervical Vessels: Normal. There is a left-sided, three-vessel aortic arch. The brachiocephalic artery and bilateral subclavian arteries are patent. Right Common Carotid Artery: Normal. No stenosis, occlusion or dissection. Right Internal Carotid Artery: Minimal calcification the origin. No stenosis, occlusion or dissection. Left Common Carotid Artery: Normal. No stenosis, occlusion or dissection. Left Internal Carotid Artery: Minimal calcification the origin. No stenosis, occlusion or dissection. External Carotid Arteries: Normal. No stenosis, occlusion or dissection. Right Vertebral Artery: Normal. No stenosis, occlusion or dissection. Left Vertebral Artery: Normal. No stenosis, occlusion or dissection. Venous structures: Normal. The jugular veins enhance normally. Visualized brain/intracranial: Normal. NON-VASCULAR FINDINGS Thyroid: Normal. No thyroid nodules. Lines/tubes: None. Lungs and Airways: Normal. No mass in the imaged lung apices and central airways. Soft tissues: Normal. No adenopathy. Bones: Mild cervical spine degenerative change. CAROTID STENOSIS REFERENCE: -Distal internal carotid artery diameter as the denominator for stenosis measurement: MILD = <50% stenosis. MODERATE = 50-69% stenosis. SEVERE = 70-89% stenosis. HAIRLINE/CRITICAL = 90-99% stenosis. OCCLUDED = 100% stenosis. Procedure Note Stu Barrera MD - 11/29/2022 CT ANGIO HEAD WITH AND WITHOUT CONTRAST, CT ANGIO NECK WITH CONTRAST TECHNIQUE: Multidetector-row CTA of the head and neck was performed before and afteradministration of intravenous contrast using tailored dose modulationtechniques. Images were reconstructed in the axial, coronal, and sagittalplanes, including angiographic image post-processing. 3D angiographicimages with reformatting and post-processing reconstructions wereperformed and interpreted. COMPARISON: None FINDINGS: HEAD CT: Brain Parenchyma: Normal. No midline shift, mass effect, parenchymalhemorrhage, or evidence of acute territorial infarct. No enhancingabnormality. Ventricular System and Extra-Axial Spaces: Normal. No extra-axial fluidcollections. Basal cisterns are patent. No hydrocephalus. Osseous and Extracranial Structures: No significant paranasal sinusdisease. No orbital abnormality. No calvarial lesion is identified. CTA HEAD: Anterior Circulation: Normal. No aneurysm, arteriovenous malformation orthrombosis. The intracranial internal carotid arteries are patent. Theanterior and middle cerebral arteries are patent. An anteriorcommunicating artery is present. Posterior Circulation: Normal. No aneurysm, arteriovenous malformation orthrombosis. The intracranial vertebral arteries and the basilar arepatent. The posterior cerebral arteries are patent bilaterally. Posteriorcommunicating arteries are present bilaterally. Venous Structures: Normal. No thrombosis. CTA NECK: Aortic Arch and Origin of Major Cervical Vessels: Normal. There is aleft-sided, three-vessel aortic arch. The brachiocephalic artery andbilateral subclavian arteries are patent. Right Common Carotid Artery: Normal. No stenosis, occlusion or dissection. Right Internal Carotid Artery: Minimal calcification the origin. Nostenosis, occlusion or dissection. Left Common Carotid Artery: Normal. No stenosis, occlusion ordissection. Left Internal Carotid Artery: Minimal calcification the origin. Nostenosis, occlusion or dissection. External Carotid Arteries: Normal. No stenosis, occlusion or dissection. Right Vertebral Artery: Normal. No stenosis, occlusion or dissection. Left Vertebral Artery: Normal. No stenosis, occlusion or dissection. Venous structures: Normal. The jugular veins enhance normally. Visualized brain/intracranial: Normal. NON-VASCULAR FINDINGS Thyroid: Normal. No thyroid nodules. Lines/tubes: None. Lungs and Airways: Normal. No mass in the imaged lung apices and centralairways. Soft tissues: Normal. No adenopathy. Bones: Mild cervical spine degenerative change. CAROTID STENOSIS REFERENCE: -Distal internal carotid artery diameter as the denominator for stenosismeasurement: MILD = <50% stenosis. MODERATE = 50-69% stenosis. SEVERE = 70-89% stenosis. HAIRLINE/CRITICAL = 90-99% stenosis. OCCLUDED = 100% stenosis. IMPRESSION: No evidence of significant stenosis, dissection, or other abnormalityinvolving the major cervical or intracranial arteries. us Chris Gabriel DO IM CT HEAD/NECK Final Resul t * CT ANGIO HEAD WITH AND WITHOUT CONTRAST (11/23/2022 12:15 PM EDT) Anatomical Region Laterality Modality Neck Computed Tomogra phy 11/29/2022 9:39 AM EDT Impressions 11/29/2022 9:40 PM EDT No evidence of significant stenosis, dissection, or other abnormality involving the major cervical or intracranial arteries. Narrative 11/29/2022 9:[address] ANGIO HEAD WITH AND WITHOUT CONTRAST, CT ANGIO NECK WITH CONTRAST TECHNIQUE: Multidetector-row CTA of the head and neck was performed before and after administration of intravenous contrast using tailored dose modulation techniques. Images were reconstructed in the axial, coronal, and sagittal planes, including angiographic image post-processing. 3D angiographic images with reformatting and post-processing reconstructions were performed and interpreted. COMPARISON: None FINDINGS: HEAD CT: Brain Parenchyma: Normal. No midline shift, mass effect, parenchymal hemorrhage, or evidence of acute territorial infarct. No enhancing abnormality. Ventricular System and Extra-Axial Spaces: Normal. No extra-axial fluid collections. Basal cisterns are patent. No hydrocephalus. Osseous and Extracranial Structures: No significant paranasal sinus disease. No orbital abnormality. No calvarial lesion is identified. CTA HEAD: Anterior Circulation: Normal. No aneurysm, arteriovenous malformation or thrombosis. The intracranial internal carotid arteries are patent. The anterior and middle cerebral arteries are patent. An anterior communicating artery is present. Posterior Circulation: Normal. No aneurysm, arteriovenous malformation or thrombosis. The intracranial vertebral arteries and the basilar are patent. The posterior cerebral arteries are patent bilaterally. Posterior communicating arteries are present bilaterally. Venous Structures: Normal. No thrombosis. CTA NECK: Aortic Arch and Origin of Major Cervical Vessels: Normal. There is a left-sided, three-vessel aortic arch. The brachiocephalic artery and bilateral subclavian arteries are patent. Right Common Carotid Artery: Normal. No stenosis, occlusion or dissection. Right Internal Carotid Artery: Minimal calcification the origin. No stenosis, occlusion or dissection. Left Common Carotid Artery: Normal. No stenosis, occlusion or dissection. Left Internal Carotid Artery: Minimal calcification the origin. No stenosis, occlusion or dissection. External Carotid Arteries: Normal. No stenosis, occlusion or dissection. Right Vertebral Artery: Normal. No stenosis, occlusion or dissection. Left Vertebral Artery: Normal. No stenosis, occlusion or dissection. Venous structures: Normal. The jugular veins enhance normally. Visualized brain/intracranial: Normal. NON-VASCULAR FINDINGS Thyroid: Normal. No thyroid nodules. Lines/tubes: None. Lungs and Airways: Normal. No mass in the imaged lung apices and central airways. Soft tissues: Normal. No adenopathy. Bones: Mild cervical spine degenerative change. CAROTID STENOSIS REFERENCE: -Distal internal carotid artery diameter as the denominator for stenosis measurement: MILD = <50% stenosis. MODERATE = 50-69% stenosis. SEVERE = 70-89% stenosis. HAIRLINE/CRITICAL = 90-99% stenosis. OCCLUDED = 100% stenosis. Procedure Note Stu Barrera MD - 11/29/2022 CT ANGIO HEAD WITH AND WITHOUT CONTRAST, CT ANGIO NECK WITH CONTRAST TECHNIQUE: Multidetector-row CTA of the head and neck was performed before and afteradministration of intravenous contrast using tailored dose modulationtechniques. Images were reconstructed in the axial, coronal, and sagittalplanes, including angiographic image post-processing. 3D angiographicimages with reformatting and post-processing reconstructions wereperformed and interpreted. COMPARISON: None FINDINGS: HEAD CT: Brain Parenchyma: Normal. No midline shift, mass effect, parenchymalhemorrhage, or evidence of acute territorial infarct. No enhancingabnormality. Ventricular System and Extra-Axial Spaces: Normal. No extra-axial fluidcollections. Basal cisterns are patent. No hydrocephalus. Osseous and Extracranial Structures: No significant paranasal sinusdisease. No orbital abnormality. No calvarial lesion is identified. CTA HEAD: Anterior Circulation: Normal. No aneurysm, arteriovenous malformation orthrombosis. The intracranial internal carotid arteries are patent. Theanterior and middle cerebral arteries are patent. An anteriorcommunicating artery is present. Posterior Circulation: Normal. No aneurysm, arteriovenous malformation orthrombosis. The intracranial vertebral arteries and the basilar arepatent. The posterior cerebral arteries are patent bilaterally. Posteriorcommunicating arteries are present bilaterally. Venous Structures: Normal. No thrombosis. CTA NECK: Aortic Arch and Origin of Major Cervical Vessels: Normal. There is aleft-sided, three-vessel aortic arch. The brachiocephalic artery andbilateral subclavian arteries are patent. Right Common Carotid Artery: Normal. No stenosis, occlusion or dissection. Right Internal Carotid Artery: Minimal calcification the origin. Nostenosis, occlusion or dissection. Left Common Carotid Artery: Normal. No stenosis, occlusion ordissection. Left Internal Carotid Artery: Minimal calcification the origin. Nostenosis, occlusion or dissection. External Carotid Arteries: Normal. No stenosis, occlusion or dissection. Right Vertebral Artery: Normal. No stenosis, occlusion or dissection. Left Vertebral Artery: Normal. No stenosis, occlusion or dissection. Venous structures: Normal. The jugular veins enhance normally. Visualized brain/intracranial: Normal. NON-VASCULAR FINDINGS Thyroid: Normal. No thyroid nodules. Lines/tubes: None. Lungs and Airways: Normal. No mass in the imaged lung apices and centralairways. Soft tissues: Normal. No adenopathy. Bones: Mild cervical spine degenerative change. CAROTID STENOSIS REFERENCE: -Distal internal carotid artery diameter as the denominator for stenosismeasurement: MILD = <50% stenosis. MODERATE = 50-69% stenosis. SEVERE = 70-89% stenosis. HAIRLINE/CRITICAL = 90-99% stenosis. OCCLUDED = 100% stenosis. IMPRESSION: No evidence of significant stenosis, dissection, or other abnormalityinvolving the major cervical or intracranial arteries. Chris Gabriel DO IMG CT HEAD/NECK Final Resul t documented in this encounter Visit Diagnoses Diagnosis Nonintractable headache, unspecified chronicity pattern, unspecified headache type- Primary Cervicalgia Nonintractable headache, unspecified chronicity pattern, unspecified headache type Cervicalgia documented in this encounter Care Teams Industrial Recruiter Relationship Specialty Start Date End Date Emeli Greenwood MD [address] [place] [address] [email or web address] [email or web address] - General Family Medicine 02/06/22 Eugene Oglesby MD [email or web address] Historical LMR Provider 03/16/17 documented as of this encounter Additional Source Comments The information contained in this document represents components of the legal health record. It is not the complete legal health record.[facility]
--- OUTSIDE RECORDS SUMMARY | 2025-03-28 17:37 | XMS_ITS | Encounter Summary ---
Author Organization [facility] Address [address] [facility] [address] [place] [address] Phone Care Team Providers Care Flower Arranger Name Role Phone Jimmy Eisenberg MD Primary Care Provider [phone] Eugene Oglesby MD Unavailable [phone] Esvin Ta MD Unavailable [phone] Eugene Oglesby MD Primary Care Provider [phone] Emeli Greenwood MD Primary Care Provider [phone] Encounter Details Date Type Department Care Team (Late st Contact Info) Description 10/21/2015 Documentation [facility] Rheumatology [address], [address] [place], [place] [id number] Gregorio Chan MD [address] [facility] [address] [place] [address] [email or web address] Social History Tobacco Use Types Packs/Day Years Used Date Smoking Tobacco: Never Sex and Gender Information Value Date Recorded Sex Assigned at Not on file Legal Sex Male 7:54 PM EST Gender Identity Not on file Sexual Orientation Not on file documented as of this encounter Progress Notes * Joseline Matute - 10/21/2015 10:44 AM EDT Prior Authorization workflow Medication: Rituximab Diagnosis/ICD 10 Given: RA Insurance: [facility] Indemnity Painter Helper's Name (First and Last Initial): N/A Telephone Number of Call/Fax number: N/A Date of Call: N/A Reference Number for Call (if applicable; specify if not applicable per agent): N/A Status: ?Pending ?? Additional Comments: Request received on 10/21/15 for Rituximab. RR. documented in this encounter Plan of Treatment Upcoming Encounters Date Type Department Care Team (Late st Contact Info) Description 05/21/2025 2:10 PM EST Office Visit [facility] Rheumatology [address] [place] [address] Marsha Power MD, MPH [address] [place] [address] 06/04/2025 8:30 AM EST Infusion [facility] [address] [place] [address] Marsha Power MD, MPH [address] [place] [phone] documented as of this encounter Visit Diagnoses Not on filedocumented in this encounter Care Teams Flower Arranger Relationship Specialty Start Date End Date Jimmy Eisenberg MD [address] [place] [phone] [email or web address] PCP - General 11/28/13 11/06/18 Eugnee Oglesby MD [address] [place] [phone] PCP - General Family Medicine 11/07/18 02/05/22 Emeli Greenwood MD [address] [place] [phone] [email or web address] - General Family Medicine 02/06/22 Eugene Oglesby MD [address] [place] [phone] [email or web address] Historical LMR Provider 03/16/17 Esvin Ta MD [address] [place] [address] [email or web address] Historical LMR Provider 03/16/17 06/07/21 documented as of this encounter Additional Source Comments The information contained in this document represents components of the legal health record. It is not the complete legal health record.[facility]
--- OUTSIDE RECORDS SUMMARY | 2025-03-28 17:37 | XMS_ITS | Encounter Summary ---
Author Organization [facility] Address [address] [place] [address] [place] [phone] Phone Care Team Providers Care Exhibits Coordinator Name Role Phone Eugene Oglesby MD Unavailable [phone] Emeli Greenwood MD Primary Care Provider [phone] Encounter Details Date Type Department Care Team (Late st Contact Info) Description 11/16/2022 Procedure Pass [facility], Ct Scan - [address] [address] Social History Tobacco Use Types Packs/Day Years [...] Description 05/21/2025 2:10 PM EST Office Visit [facility] Rheumatology [address] [place] [address] Marsha Power MD, MPH 22 [facility], [address] [address] [email or web address] 06/04/2025 8:30 AM EST Infusion [facility] [address] [place] [address] Marsha Power MD, MPH [address] [place] [address], [address] [address] [email or web address] documented as of this encounter Visit Diagnoses Not on filedocumented in this encounter Care Teams Exhibits Coordinator Relationship Specialty Start Date End Date Emeli Greenwood MD [address] [place] [phone] [email or web address] - General Family Medicine 02/06/22 Eugene Oglesby MD [email or web address] Historical LMR Provider 03/16/17 documented as of this encounter Additional Source Comments The information contained in this document represents components of the legal health record. It is not the complete legal health record.[facility]
--- OUTSIDE RECORDS SUMMARY | 2025-03-28 17:37 | XMS_ITS | Encounter Summary ---
Author Organization Formerly [facility] Address [address] [place] [address] [place] [address] Phone Care Team Providers Care Clothes Shaker Name Role Phone Jimmy Eisenberg MD Primary Care Provider [phone] Eugene Oglesby MD Unavailable [phone] Esvin Ta MD Unavailable [phone]- [phone] Eugene Oglesby MD Primary Care Provider [phone] Emeli Greenwood MD Primary Care Provider [phone] Reason for Referral * MRI/CAT Scan - Closed Specialty Diagnoses / Procedures Referred By Contac t Referred To Contact Radiology Diagnoses Acute recurrent sinusitis, unspecified location Procedures CT Face Eugene Oglesby MD Phone: tel: fax: [email or web address] Referral ID Status Reason Start Date Expiration Date Visits Re quested Visits Authorized [id number] Closed 10/28/2018 11/26/2018 1 1 Encounter Details Date Type Department Care Team (Late st Contact Info) Description 11/01/2018 Transcribe Orders Virtual Department [address] [place], [place] [phone] Eugene Oglesby MD [address] [place] [address] [phone] [email or web address] Acute recurrent sinusitis, unspecified location (Primary Dx) Social History Tobacco Use Types [...] 05/21/2025 2:10 PM EST Office Visit [facility] Rheumatology [address] [place] [address] Marsha Power MD, MPH [address] [place] [phone] [email or web address] 06/04/2025 8:30 AM EST Infusion [facility] [address] [place] [address] Marsha Power MD, MPH [address] [place] [phone] documented as of this encounter Results * CT FACE WITHOUT CONTRAST (11/07/2018 7:48 AM EDT) Anatomical Region Laterality Modality Face Computed Tomogra phy 11/07/2018 8:36 AM EDT Impressions 11/07/2018 12:11 PM EDT Mild paranasal sinus mucosal thickening. Minimal fluid within the right sphenoid sinus and inferior right maxillary sinus. TOTAL CTDIvol: 22.90 mGy POS - [id number] Edited by: Barb Quinn on 11/07/2018 10:02 AM Narrative 11/07/2018 12:11 PM EDT HISTORY: + SINUSITIS [SIGN/SX] ACUTE SINUSITIS, RECURRING SINUS PAIN DANIEL ON R COMPARISON: None. TECHNIQUE: CT imaging of the facial bones/paranasal sinuses. No IV contrast. Helical axial CT images obtained with coronal and sagittal images reconstructed. Radiation dose control: Exam performed with automated exposure control or iterative reconstruction to minimize radiation exposure. FINDINGS: There is extensive dental hardware with streak artifact. There is mild mucosal thickening in the inferior frontal sinuses and frontoethmoidal recesses.. There is mild bilateral anterior and posterior ethmoid air cell mucosal thickening. There is mild polypoid mucosal thickening in the inferior right sphenoid sinus and a tiny area of mucosal thickening in the left sphenoid sinus. There are bony septa within the inferior right maxillary sinuses where there is minimal fluid on the right. The rest of the maxillary sinuses are clear. The globes and orbits are normal. The temporomandibular joints are normal. The nasal turbinates are normal. Procedure Note Bridgette Raymond MD - 11/07/2018 HISTORY: + SINUSITIS [SIGN/SX] ACUTE SINUSITIS, RECURRING SINUS PAIN DANIEL ON R COMPARISON: None. TECHNIQUE: CT imaging of the facial bones/paranasal sinuses. No IVcontrast. Helical axial CT images obtained with coronal and sagittalimages reconstructed. Radiation dose control: Exam performed with automated exposure control oriterative reconstruction to minimize radiation exposure. FINDINGS: There is extensive dental hardware with streak artifact. There is mildmucosal thickening in the inferior frontal sinuses and frontoethmoidalrecesses.. There is mild bilateral anterior and posterior ethmoid air cellmucosal thickening. There is mild polypoid mucosal thickening in theinferior right sphenoid sinus and a tiny area of mucosal thickening in theleft sphenoid sinus. There are bony septa within the inferior rightmaxillary sinuses where there is minimal fluid on the right. The rest ofthe maxillary sinuses are clear. The globes and orbits are normal. The temporomandibular joints are normal. The nasal turbinates are normal. IMPRESSION: Mild paranasal sinus mucosal thickening. Minimal fluid within the rightsphenoid sinus and inferior right maxillary sinus. TOTAL CTDIvol: 22.90 mGy POS - [id number] Edited by: Barb Quinn on 11/07/2018 10:02 AM Eugene Oglesby MD IMG CT HEAD/NECK Final Resu lt documented in this encounter Visit Diagnoses Diagnosis Acute recurrent sinusitis, unspecified location- Primary Acute recurrent sinusitis, unspecified location documented in this encounter Care Teams Clothes Shaker Relationship Specialty Start Date End Date Jimmy Eisenberg MD [address] [place] [phone] [email or web address] PCP - General 11/28/13 11/06/18 Eugene Oglesby MD [address] [place] [phone] [email or web address] PCP - General Family Medicine 11/07/18 02/05/22 Emeli Greenwood MD [address] [place] [phone] [email or web address] PCP - General Family Medicine 02/06/22 Eugene Oglesby MD [address] [place] [phone] [email or web address] Historical LMR Provider 03/16/17 Esvin Ta MD [address] [place] [phone] [email or web address] Historical LMR Provider 03/16/17 06/07/21 documented as of this encounter Additional Source Comments The information contained in this document represents components of the legal health record. It is not the complete legal health record.[facility]
--- OUTSIDE RECORDS SUMMARY | 2025-03-28 17:37 | XMS_ITS | Encounter Summary ---
Author Organization [facility] Address [address] [place] [address] [place] [phone] Phone Care Team Providers Care Hand Miter Operator Name Role Phone Eugene Oglesby MD Unavailable [phone] Emeli Greenwood MD Primary Care Provider [phone] Reason for Referral * MRI/CAT Scan - Closed Specialty Diagnoses / Procedures Referred By Contac t Referred To Contact Radiology Diagnoses Radiculopathy, cervical region Procedures MRI Cervical Spine CHG MRI, CERV SPINE CHG MRI, CERV SPINE COMBO CHG MRI, CERV SPINE CONTRAST Chris Gabriel DO Phone: tel: fax: [email or web address] Referral ID Status Reason Start Date Expiration Date Visits Re quested Visits Authorized [id number] Closed 02/23/2023 03/24/2023 1 1 Encounter Details Date Type Department Care Team (Latest Contact Info) Description 02/23/2023 Transcribe Orders Virtual Department [address] [place] [address] Chris Gabriel DO [address] [place] [address] [email or web address] Radiculopathy, cervical region (Primary Dx) Social History Tobacco Use Types [...] Visit [facility] Rheumatology [address] [place] [address] Marsha Power MD, MPH [address] [place] [address] 06/04/2025 8:30 AM EST Infusion [facility] [place] [address] [place] [address] Marsha Power MD, MPH [address] [place] [phone] documented as of this encounter Results * MRI CERVICAL SPINE (NEURO) FOCUS WITHOUT CONTRAST (03/19/2023 7:22 AM EDT) Anatomical Region Laterality Modality C-spine Magnetic Resonan ce 03/25/2023 11:2 1 AM EDT Impressions 03/25/2023 1:06 PM EDT 1. Degenerative changes with mild effect upon central canal and neural foramen as noted. 2. Normal appearance to the cervical cord and paraspinal soft tissues. Narrative 03/25/2023 1:06 PM EDT MRI CERVICAL SPINE (NEURO) FOCUS WITHOUT CONTRAST Indication: Headaches. Upper extremity numbness. Radiculopathy. TECHNIQUE: MRI CERVICAL SPINE (NEURO) FOCUS WITHOUT CONTRAST Multi-sequence, multi-planar MRI of the cervical spine was performed without intravenous contrast. Sagittal T1, T2 and STIR sequences. Axial T2-weighted sequences of pain with spin-echo and gradient echo techniques. COMPARISON: No prior MR cervical spine imaging available. CT angiography of the neck which includes the cervical spine 11/23/2022 available for review. FINDINGS: CERVICAL SPINE: Alignment and Vertebrae: Normal alignment. No compression fracture. Marrow: No bone marrow replacing lesion. Discs and Endplates: Disc desiccation and multiple small disc herniations evident at multiple levels fully described below. Spinal Cord: Normal cervical spine cord size and signal intensity. Upper thoracic spine and craniocervical junction are normal. Soft Tissue: Normal. No prevertebral edema. Fluid bright signal/mucosal thickening evident within the periphery of the sphenoid sinus, incompletely assessed with current study. Findings by level: C2-C3: Normal. No spinal or foraminal stenosis. C3-C4: Minimal central disc herniation. No spinal or foraminal stenosis. C4-C5: Minimal midline disc herniation. Mild left-sided facet hypertrophy. No central or foraminal stenosis. C5-C6: Mild to moderate midline disc herniation deforms thecal sac. Mild posterior hypertrophy deforms dorsal aspect of thecal sac. Mild central stenosis without cord constriction. No foraminal stenosis. C6-C7: Small midline disc herniation with overlying bony hypertrophy. Mild posterior bony hypertrophy. Mild central and mild bilateral foraminal stenosis. C7-T1: Normal. No spinal or foraminal stenosis. Procedure Note Gus Hammonds MD - 03/25/2023 MRI CERVICAL SPINE (NEURO) FOCUS WITHOUT CONTRAST Indication: Headaches. Upper extremity numbness. Radiculopathy. TECHNIQUE: MRI CERVICAL SPINE (NEURO) FOCUS WITHOUT CONTRAST Multi-sequence, multi-planar MRI of the cervical spine was performedwithout intravenous contrast. Sagittal T1, T2 and STIR sequences. Axial T2-weighted sequences of painwith spin-echo and gradient echo techniques. COMPARISON: No prior MR cervical spine imaging available. CT angiographyof the neck which includes the cervical spine 11/23/2022 available forreview. FINDINGS: CERVICAL SPINE: Alignment and Vertebrae: Normal alignment. No compression fracture. Marrow: No bone marrow replacing lesion. Discs and Endplates: Disc desiccation and multiple small disc herniationsevident at multiple levels fully described below. Spinal Cord: Normal cervical spine cord size and signal intensity. Upperthoracic spine and craniocervical junction are normal. Soft Tissue: Normal. No prevertebral edema. Fluid bright signal/mucosalthickening evident within the periphery of the sphenoid sinus,incompletely assessed with current study. Findings by level: C2-C3: Normal. No spinal or foraminal stenosis. C3-C4: Minimal central disc herniation. No spinal or foraminal stenosis. C4-C5: Minimal midline disc herniation. Mild left-sided facet hypertrophy.No central or foraminal stenosis. C5-C6: Mild to moderate midline disc herniation deforms thecal sac. Mildposterior hypertrophy deforms dorsal aspect of thecal sac. Mild centralstenosis without cord constriction. No foraminal stenosis. C6-C7: Small midline disc herniation with overlying bony hypertrophy. Mildposterior bony hypertrophy. Mild central and mild bilateral foraminalstenosis. C7-T1: Normal. No spinal or foraminal stenosis. IMPRESSION: 1. Degenerative changes with mild effect upon central canal and neuralforamen as noted. 2. Normal appearance to the cervical cord and paraspinal soft tissues. Chris Gabriel DO IMG MR XSPECIALTY Final Resu lt documented in this encounter Visit Diagnoses Diagnosis Radiculopathy, cervical region- Primary Brachial neuritis or radiculitis nos Radiculopathy, cervical region Brachial neuritis or radiculitis nos documented in this encounter Care Teams Hand Miter Operator Relationship Specialty Start Date End Date Emeli Greenwood MD [address] [place] [phone] [email or web address] PCP - General Family Medicine 02/06/22 Eugene Oglesby MD [email or web address] Historical LMR Provider 03/16/17 documented as of this encounter Additional Source Comments The information contained in this document represents components of the legal health record. It is not the complete legal health record.[facility]
--- OUTSIDE RECORDS SUMMARY | 2025-03-28 17:37 | XMS_ITS | Encounter Summary ---
Author Organization [facility] Address [address] [place] [address] [place] [address] Phone Care Team Providers Care Rubber Flap Cutter Name Role Phone Eugene Oglesby MD Unavailable [phone] Eugene Oglesby MD Primary Care Provider [phone] Emeli Greenwood MD Primary Care Provider [phone] Reason for Referral * MRI/CAT Scan - Closed Specialty Diagnoses / Procedures Referred By Mandeep osei Referred To Contact Radiology Diagnoses Maxillary pain Procedures CT Face CHG CT SCAN,MAXILLOFACIAL AREA,W/O CONTRAST CHG CT SCAN, FACE/JAW CONTRAST CHG CT SCANS FACE/JAW COMBO Nathaniel Lombardo DMD Phone: tel: fax: mailto:[email or web address] Referral ID Status Reason Start Date Expiration Date Visits Re quested Visits Authorized [id number] Closed 09/04/2021 10/01/2021 1 1 Encounter Details Date Type Department Care Team (Latest Contact Info) Description 09/04/2021 Transcribe Orders Virtual Department [address] [place] [address] Nathaniel Lombardo DMD [address] [place] [phone] [email or web address] Maxillary pain (Primary Dx) Social History Tobacco Use Types [...] Description 05/21/2025 2:10 PM EST Office Visit [facility] Rheumatology [address] [place] [address] Marsha Power MD, MPH [address] [place] [address], [address] [address] 06/04/2025 8:30 AM EST Infusion [facility] [address] [place] [address] Marsha Power MD, MPH [address] [place] [address], [address] [phone] documented as of this encounter Results * CT FACE WITHOUT CONTRAST (09/15/2021 1:39 PM EDT) Anatomical Region Laterality Modality Face Computed Tomogra phy 09/15/2021 4:09 PM EDT Impressions 09/15/2021 4:27 PM EDT 1.Mucosal thickening within the paranasal sinuses. No air-fluid levels. 2.No explanation for maxillary pain and swelling. Narrative 09/15/2021 4:[address] FACE WITHOUT CONTRAST HISTORY: Left maxillary pain and swelling. TECHNIQUE: Multidetector-row CT of the face was performed without intravenous contrast using tailored dose modulation techniques. Images were reconstructed in the axial, coronal, and sagittal planes. COMPARISON: CT face 11/07/2018. FINDINGS: Aerodigestive Tract: No significant airway narrowing. The mucosa appears symmetrical. Salivary Glands: No abnormalities demonstrated. Paranasal Sinuses and Mastoids: Mucosal thickening in bilateral ethmoid air cells, mildly progressed from 11/07/2018. There are opacified anterior right ethmoid air cells. Traces of mucosal thickening in the inferior aspects of the frontal sinuses. Traces of mucosal thickening within the sphenoid sinus. Development of mild- moderate mucosal thickening in the right maxillary sinus. Trace of mucosal thickening in the left maxillary sinus. Similar hypertrophy of the middle and inferior nasal turbinates. Traces of mucosal thickening within mastoid air cells on the left. Petrous Apices, Clivus, Basilar Cisterns, Cavernous Sinuses, Sella, Jugular Foramina and Poststyloid Parapharyngeal Spaces: No abnormalities demonstrated. Lymph Nodes: No evidence of suspicious lymph nodes. Brain and Orbits: No evidence of orbital abnormalities. No definite intracranial abnormalities. The brain is poorly evaluated. Bones and Soft Tissues: No evidence of erosions. No evidence of suspicious lytic or blastic lesions within the bones. Procedure Note Nolan Bragg MD - 09/15/2021 CT FACE WITHOUT CONTRAST HISTORY: Left maxillary pain and swelling. TECHNIQUE: Multidetector-row CT of the face was performed withoutintravenous contrast using tailored dose modulation techniques. Imageswere reconstructed in the axial, coronal, and sagittal planes. COMPARISON: CT face 11/07/2018. FINDINGS: Aerodigestive Tract: No significant airway narrowing. The mucosa appearssymmetrical. Salivary Glands: No abnormalities demonstrated. Paranasal Sinuses and Mastoids: Mucosal thickening in bilateral ethmoidair cells, mildly progressed from 11/07/2018. There are opacified anteriorright ethmoid air cells. Traces of mucosal thickening in the inferioraspects of the frontal sinuses. Traces of mucosal thickening within thesphenoid sinus. Development of mild- moderate mucosal thickening in theright maxillary sinus. Trace of mucosal thickening in the left maxillarysinus. Similar hypertrophy of the middle and inferior nasal turbinates.Traces of mucosal thickening within mastoid air cells on the left. Petrous Apices, Clivus, Basilar Cisterns, Cavernous Sinuses, Sella, Jugular Foramina and Poststyloid Parapharyngeal Spaces: No abnormalitiesdemonstrated. Lymph Nodes: No evidence of suspicious lymph nodes. Brain and Orbits: No evidence of orbital abnormalities. No definiteintracranial abnormalities. The brain is poorly evaluated. Bones and Soft Tissues: No evidence of erosions. No evidence of suspiciouslytic or blastic lesions within the bones. IMPRESSION: 1.Mucosal thickening within the paranasal sinuses. No air-fluid levels. 2.No explanation for maxillary pain and swelling. us Nathaniel Lombardo DMD IMG CT HEAD/NECK Final Res ult documented in this encounter Visit Diagnoses Diagnosis Maxillary pain- Primary Maxillary pain documented in this encounter Care Teams Rubber Flap Cutter Relationship Specialty Start Date End Date Eugene Oglesby MD [email or web address] PCP - General Family Medicine 11/07/18 02/05/22 Emeli Greenwood MD [address] [place] [address] [email or web address] PCP - General Family Medicine 02/06/22 Eugene Oglesby MD [email or web address] Historical LMR Provider 03/16/17 documented as of this encounter Additional Source Comments The information contained in this document represents components of the legal health record. It is not the complete legal health record.[facility]
--- OUTSIDE RECORDS SUMMARY | 2025-03-28 17:37 | XMS_ITS | Patient Health Record ---
Author Organization [facility] Address [address] [place] [address] Care Team Providers Care Small Arms Artillery Repairer Name Role Phone Emeli Greenwood Primary Care Provider Unavailab Alonso Queen Unavailable [phone] Allergies Allergen (clinical drug ingredient) Drug/Non Drug Allergy documented on EMR Reaction Allergy Type Onset Date Status LamISIL difficulty breathing Drug Allergy Active Substance with penicillin structure and antibacterial mechanism of action (substance) Penicillins rash Drug Allergy Active Reason For Referral No Information Medications Medication SIG (Take, Route, Frequency, Duration) Notes Start Date End Date Status Folic Acid 400 MCG 1 tablet Orally Once a day Active Probiotic Active Metamucil Active MiraLax 17 GM/SCOOP 1 scoop mixed with 8 ounces of fluid Orally Once a day Active Vitamin D3 25 MCG (1000 UT) 1 capsule Orally Once a day Active Rituxan Active Social History Tobacco Use: Social History Observation Description Date Details (start date - stop date) Never Smoker NA - NA Tobacco use other than smoking: Question Answer Notes Are you an other tobacco user? No Tobacco Control (Standard) Question Answer Notes Tobacco use: Nonsmoker Additional Findings: Tobacco non-user Current no nsmoker AUDIT-C (Standard) Question Answer Notes Did you have a drink containing alcohol in the p ast year? No Points 0 Interpretation Negative Vital Signs Blood pressure diastolic 70 mm Hg 09/12/2024 Height 5 ft 8 in in 09/12/2024 Blood pressure systolic 130 mm Hg 09/12/2024 Weight 168 lbs 09/12/2024 BMI 25.54 kg/m2 09/12/2024 Procedures Procedure Date Ordered Date Performed Result Body Sit e 92259-Oyyspkoc Plate 09/12/2024 N/A Encounters Encounter Location Date Provider Diagnosis [facility] [place] [address] [place] [address] 09/12/2024 Alonso Samano Pain in right toe(s) M79.674 ; Onychomycosis B35.1 ; Pain in left toe(s) M79.675 and Ingrown nail L60.0 Assessments Encounter Date Diagnosis (ICD Code) Assessment Notes Treatment Notes Treatment Clinical Notes Section Notes 09/12/2024 Pain in right toe(s) (ICD-10 - M79.674) 09/12/2024 Onychomycosis (ICD-10 - B35.1) 09/12/2024 Pain in left toe(s) (ICD-10 - M79.675) 09/12/2024 Ingrown nail (ICD-10 - L60.0) Plan Of Treatment Pending Test Test Name Order Date 30251-Dpkrpoia Plate 09/12/2024 Insurance Providers Payer Name Payer Address Payer Phone Subscriber Number Group Number Insured Name Patient Relationship to Insured Coverage Start Date Coverage End Date [facility] [address] [place] [address] [id number] Aditi Villeda Spouse - patient is the spouse of the insured Medical (General) History Medical History History ICD Code Cancer Numbness sinusitis thyroid Measles Mumps Chicken pox Autoimmune disorder Unknown muscle and joint problem Surgical History Surgery Date(Month/Year) knee surgery 3x cancer surgery
--- OUTSIDE RECORDS SUMMARY | 2025-03-28 17:37 | XMS_ITS | Encounter Summary ---
Author Organization [facility] Address [address] [place] [address] [place] [address] Phone Care Team Providers Care Infection Control Rn Name Role Phone Eugene Oglesby MD Unavailable [phone] Emeli Greenwood MD Primary Care Provider [phone] Reason for Referral * MRI/CAT Scan - Closed Specialty Diagnoses / Procedures Referred By Contac t Referred To Contact Radiology Diagnoses Altered mental status, unspecified altered mental status type Procedures MRI Brain CHG MRI BRAIN COMBO CHG MRI BRAIN CONTRAST CHG MRI BRAIN Emeli Greenwood MD [address] [place] [address] Phone: tel: fax: [email or web address] Referral ID Status Reason Start Date Expiration Date Visits Re quested Visits Authorized [id number] Closed 08/10/2024 09/08/2024 1 1 Encounter Details Date Type Department Care Team (Late st Contact Info) Description 08/10/2024 Transcribe Orders Virtual Department [address] [place] [address] Emeli Greenwood MD [address] [place] [phone] [email or web address] Altered mental status, unspecified altered mental status type (Primary Dx) Social History Tobacco Use Types [...] Description 05/21/2025 2:10 PM EST Office Visit [facility] Rheumatology [address] [place] [address] Marsha Power MD, MPH [address] [place] [address] 06/04/2025 8:30 AM EST Infusion [facility] [address] [place] [address] Marsha Power MD, MPH [address] [place] [phone] documented as of this encounter Results * MRI BRAIN WITHOUT CONTRAST (08/20/2024 5:01 PM EDT) Anatomical Region Laterality Modality Head Magnetic Resonan ce 08/23/2024 11:1 9 AM EDT Impressions 08/23/2024 11:24 AM EDT 1. No evidence of acute infarction, hemorrhage, intracranial mass, or hydrocephalus. 2. Paranasal sinus disease. Narrative 08/23/2024 11:24 AM EDT MRI BRAIN WITHOUT CONTRAST Referring clinician's provided indication for this examination in [facility]: Outside Radiology Order; altered mental status TECHNIQUE: MRI BRAIN WITHOUT CONTRAST COMPARISON: MRI BRAIN WITH AND WITHOUT CONTRAST ; CT ANGIO HEAD WITH AND WITHOUT CONTRAST FINDINGS: Brain Parenchyma: No evidence of acute infarct, mass lesion, or hemorrhage. Ventricular System and Extra-Axial Spaces: No evidence of midline shift or hydrocephalus. Extracranial Structures: Arterial flow voids in the skull base are present. Orbits are unremarkable. Partial opacification of the right sphenoid sinus with mild scattered mucosal thickening throughout the remainder of the paranasal sinuses are seen. The mastoids are clear. Procedure Note Gt Petersen MD - 08/23/2024 MRI BRAIN WITHOUT CONTRAST Referring clinician's provided indication for this examination in [facility]:Outside Radiology Order; altered mental status TECHNIQUE: MRI BRAIN WITHOUT CONTRAST COMPARISON: MRI BRAIN WITH AND WITHOUT CONTRAST ; CT ANGIO HEADWITH AND WITHOUT CONTRAST FINDINGS: Brain Parenchyma: No evidence of acute infarct, mass lesion, orhemorrhage. Ventricular System and Extra-Axial Spaces: No evidence of midline shift orhydrocephalus. Extracranial Structures: Arterial flow voids in the skull base arepresent. Orbits are unremarkable. Partial opacification of the rightsphenoid sinus with mild scattered mucosal thickening throughout theremainder of the paranasal sinuses are seen. The mastoids are clear. IMPRESSION: 1. No evidence of acute infarction, hemorrhage, intracranial mass, orhydrocephalus. 2. Paranasal sinus disease. Emeli Greenwood MD IMG MR HEAD/NECK Final Resu lt documented in this encounter Visit Diagnoses Diagnosis Altered mental status, unspecified altered mental status type- Primary Altered mental status, unspecified altered mental status type documented in this encounter Care Teams Infection Control Rn Relationship Specialty Start Date End Date Emeli Greenwood MD [address] [place] [phone] [email or web address] PCP - General Family Medicine 02/06/22 [place] Oglesby MD [email or web address] Historical LMR Provider 03/16/17 documented as of this encounter Additional Source Comments The information contained in this document represents components of the legal health record. It is not the complete legal health record.[facility]
--- OUTSIDE RECORDS SUMMARY | 2025-03-28 17:37 | XMS_ITS | Encounter Summary ---
Author Organization [facility] Address [address] [place] [address] [place] [address] Phone Care Team Providers Care Lead Trainer Name Role Phone Eugene Oglesby MD Unavailable [phone] Emeli Greenwood MD Primary Care Provider [phone] Encounter Details Date Type Department Care Team (Late st Contact Info) Description 01/26/2025 Procedure Pass [facility], [address] [address] Social History Tobacco Use Types Packs/Day Years [...] Description 05/21/2025 2:10 PM EST Office Visit [facility] Rheumatology [address] [place] [address] Marsha Power MD, MPH 22 [facility], [address] [address] [email or web address] 06/04/2025 8:30 AM EST Infusion [facility] [address] [place] [address] Marsha Power MD, MPH [address] [place] [address], [address] [address] [email or web address] documented as of this encounter Visit Diagnoses Not on filedocumented in this encounter Care Teams Lead Trainer Relationship Specialty Start Date End Date Emeli Greenwood MD [address] [place] [phone] [email or web address] PCP - General Family Medicine 02/06/22 [place] Oglesby MD [email or web address] Historical LMR Provider 03/16/17 documented as of this encounter Additional Source Comments The information contained in this document represents components of the legal health record. It is not the complete legal health record.[facility]
--- OUTSIDE RECORDS SUMMARY | 2025-03-28 17:37 | XMS_ITS | Encounter Summary ---
Author Organization [facility] Address [address] [place] [address] Phone Care Team Providers Care Bioinformatics Support Specialist Name Role Phone [place] Oglesby MD Unavailable [phone] Emeli Greenwood MD Primary Care Provider [phone] Encounter Details Date Type Department Care Team (Late st Contact Info) Description 08/10/2024 Procedure Pass [address] [place] [address] Social History Tobacco Use Types Packs/Day Years [...] Description 05/21/2025 2:10 PM EST Office Visit [facility] Rheumatology [address] [place] [address] Marsha Power MD, MPH 22 [facility], [address] [address] [email or web address] 06/04/2025 8:30 AM EST Infusion [facility] [address] [place] [address] Marsha Power MD, MPH [address] [place] [address], [address] [address] [email or web address] documented as of this encounter Visit Diagnoses Not on filedocumented in this encounter Care Teams Bioinformatics Support Specialist Relationship Specialty Start Date End Date Emeli Greenwood MD [address] [place] [phone] [email or web address] PCP - General Family Medicine 02/06/22 [place] Oglesby MD [email or web address] Historical LMR Provider 03/16/17 documented as of this encounter Additional Source Comments The information contained in this document represents components of the legal health record. It is not the complete legal health record.[facility]
--- OUTSIDE RECORDS SUMMARY | 2025-03-28 17:37 | XMS_ITS | Encounter Summary ---
Author Organization [facility] Address [address] [place] [address] Phone Care Team Providers Care Analytical Chemistry Teacher Name Role Phone [place] Oglesby MD Unavailable [phone] Emeli Greenwood MD Primary Care Provider [phone] Encounter Details Date Type Department Care Team (Late st Contact Info) Description 02/23/2023 Procedure Pass [address] [place] [address] Social History Tobacco Use Types Packs/Day Years [...] Description 05/21/2025 2:10 PM EST Office Visit [facility] Rheumatology [address] [place] [address] Marsha Power MD, MPH 22 [facility], [address] [address] [email or web address] 06/04/2025 8:30 AM EST Infusion [facility] [address] [place] [address] Marsha Power MD, MPH [address] [place] [address], [address] [address] [email or web address] documented as of this encounter Visit Diagnoses Not on filedocumented in this encounter Care Teams Analytical Chemistry Teacher Relationship Specialty Start Date End Date Emeli Greenwood MD [address] [place] [phone] [email or web address] PCP - General Family Medicine 02/06/22 [place] Oglesby MD [email or web address] Historical LMR Provider 03/16/17 documented as of this encounter Additional Source Comments The information contained in this document represents components of the legal health record. It is not the complete legal health record.[facility]
--- OUTSIDE RECORDS SUMMARY | 2025-03-28 17:37 | XMS_ITS | Encounter Summary ---
Author Organization [facility] Address [address] [place] [address] Phone Care Team Providers Care House Wrecker Name Role Phone [place] Oglesby MD Unavailable [phone] Esvin Ta MD Unavailable + [phone] [place] Oglesby MD Primary Care Provider [phone] Emeli Greenwood MD Primary Care Provider [phone] Encounter Details Date Type Department Care Team (Late st Contact Info) Description 02/04/2019 Procedure Pass [address] [place] [address] Social History Tobacco Use Types Packs/Day Years [...] Description 05/21/2025 2:10 PM EST Office Visit [facility] Rheumatology [address] [place] [address] Marsha Power MD, MPH 22 [facility], [address] [place] [address] 06/04/2025 8:30 AM EST Infusion [facility] [address] [place] [address] Marsha Power MD, MPH 22 [facility], [address] [place] [address] [email or web address] documented as of this encounter Visit Diagnoses Not on filedocumented in this encounter Care Teams House Wrecker Relationship Specialty Start Date End Date [place] Oglesby MD [email or web address] PCP - General Family Medicine 11/07/18 02/05/22 Emeli Greenwood MD [address] [place] [phone] [email or web address] PCP - General Family Medicine 02/06/22 [place] Oglesby MD [email or web address] Historical LMR Provider 03/16/17 Esvin Ta MD [address] [place] [address] [email or web address] Historical LMR Provider 03/16/17 06/07/21 documented as of this encounter Additional Source Comments The information contained in this document represents components of the legal health record. It is not the complete legal health record.[facility]
--- OUTSIDE RECORDS SUMMARY | 2025-03-28 17:37 | XMS_ITS | Encounter Summary ---
Author Organization [facility] Address [address] [place] [address] [place] [address] Phone Care Team Providers Care Floor Runner Name Role Phone Eugene Oglesby MD Unavailable [phone] Emeli Greenwood MD Primary Care Provider [phone] Encounter Details Date Type Department Care Team (Late st Contact Info) Description 08/24/[address] [facility], Ct Scan - [address] [address] Social History Tobacco Use Types Packs/Day Years [...] Description 05/21/2025 2:10 PM EST Office Visit [facility] Rheumatology 22 [place] [address] Marsha Power MD, MPH 22 [facility], [address] [address] [email or web address] 06/04/2025 8:30 AM EST Infusion [facility] [address] [place] [address] Marsha Power MD, MPH [address] [place] [address], [address] [address] [email or web address] documented as of this encounter Visit Diagnoses Not on filedocumented in this encounter Care Teams Floor Runner Relationship Specialty Start Date End Date Emeli Greenwood MD [address] [place] [phone] [email or web address] PCP - General Family Medicine 02/06/22 [place] Oglesby MD [email or web address] Historical LMR Provider 03/16/17 documented as of this encounter Additional Source Comments The information contained in this document represents components of the legal health record. It is not the complete legal health record.[facility]
--- OUTSIDE RECORDS SUMMARY | 2025-03-28 17:37 | XMS_ITS | Encounter Summary ---
Author Organization [facility] Address [address] [place] [address] [place] [address] Phone Care Team Providers Care First Aid Director Name Role Phone Eugene Oglesby MD Unavailable [phone] Esvin Ta MD Unavailable + [phone] [place] Oglesby MD Primary Care Provider [phone] Emeli Greenwood MD Primary Care Provider [phone] Encounter Details Date Type Department Care Team (Late st Contact Info) Description 02/17/2019 Ancillary Orders [facility], X-Ray - [address] [place] [address] Aminta Ryan MD, PhD [address] [place] [address] [email or web address] Foreign body in eye, unspecified laterality, initial encounter Social History Tobacco Use Types Packs/Day Years [...] Description 05/21/2025 2:10 PM EST Office Visit [facility] Rheumatology [address] [place] [address] Marsha Power MD, MPH 22 [facility], [address] [place] [address] 06/04/2025 8:30 AM EST Infusion [facility]fusion [facility] [address] [place] [address] Marsha Power MD, MPH 22 [facility], [address] [place] [address] [email or web address] documented as of this encounter Results * XR Orbits Series (02/17/2019 11:01 AM EDT) Anatomical Region Laterality Modality Face Radiographic Teresita ging 02/17/2019 11:0 6 AM EDT Impressions 02/17/2019 11:08 AM EDT No radiopaque orbital foreign bodies. POS - [id number] Narrative 02/17/2019 11:08 AM EDT HISTORY: As above. COMPARISON: CT face 11/07/2018. ORBIT RADIOGRAPHS FINDINGS: Three views obtained. No radiopaque orbital foreign bodies. Imaged paranasal sinuses are clear. No bone lesions. Procedure Note Rome Jackson MD - 02/17/2019 HISTORY: As above. COMPARISON: CT face 11/07/2018. ORBIT RADIOGRAPHS FINDINGS: Three views obtained. No radiopaque orbital foreign bodies. Imagedparanasal sinuses are clear. No bone lesions. IMPRESSION: No radiopaque orbital foreign bodies. POS - [id number] us Aminta Ryan MD, PhD IMG XR HEAD AND SHUNT SERIES Fi nal Result documented in this encounter Visit Diagnoses Diagnosis Foreign body in eye, unspecified laterality, initial encounter Foreign body in eye, unspecified laterality, initial encounter documented in this encounter Care Teams First Aid Director Relationship Specialty Start Date End Date [place] Oglesby MD [email or web address] PCP - General Family Medicine 11/07/18 02/05/22 Emeli Greenwood MD [address] [place] [phone] [email or web address] PCP - General Family Medicine 02/06/22 [place] Oglesby MD [email or web address] Historical LMR Provider 03/16/17 Esvin Ta MD [address] [place] [address] [email or web address] Historical LMR Provider 03/16/17 06/07/21 documented as of this encounter Additional Source Comments The information contained in this document represents components of the legal health record. It is not the complete legal health record.[facility]
--- OUTSIDE RECORDS SUMMARY | 2025-03-28 17:37 | XMS_ITS | Encounter Summary ---
Author Organization [facility] Address [address] [place] [address] [place] [address] Phone Care Team Providers Care Ex Assistant/Program Director Name Role Phone Eugene Oglesby MD Unavailable [phone] Emeli Greenwood MD Primary Care Provider [phone] Encounter Details Date Type Department Care Team (Late st Contact Info) Description 11/16/2022 Procedure Pass [facility], Ct Scan - [address] [address] Social History Tobacco Use Types Packs/Day Years [...] Description 05/21/2025 2:10 PM EST Office Visit [facility] Rheumatology [address] [place] [address] Marsha Power MD, MPH 22 [facility], [address] [address] [email or web address] 06/04/2025 8:30 AM EST Infusion [facility] [address] [place] [address] Marsha Power MD, MPH [address] [place] [address], [address] [address] [email or web address] documented as of this encounter Visit Diagnoses Not on filedocumented in this encounter Care Teams Ex Assistant/Program Director Relationship Specialty Start Date End Date Emeli Greenwood MD [address] [place] [phone] [email or web address] PCP - General Family Medicine 02/06/22 [place] Oglesby MD [email or web address] Historical LMR Provider 03/16/17 documented as of this encounter Additional Source Comments The information contained in this document represents components of the legal health record. It is not the complete legal health record.[facility]
--- OUTSIDE RECORDS SUMMARY | 2025-03-28 17:37 | XMS_ITS | Encounter Summary ---
Author Organization [facility] Address [address] [place] [phone] Phone Care Team Providers Care Gun Striper Name Role Phone Eugene Oglesby MD Unavailable [phone] Emeli Greenwood MD Primary Care Provider [phone] Reason for Referral * MRI/CAT Scan - Closed Specialty Diagnoses / Procedures Referred By Contac t Referred To Contact Radiology Diagnoses Abdominal pain, unspecified abdominal location Procedures CT Abdomen/Pelvis CHG CT SCAN,ABDOMENT AND PELVIS,W/O CONTRAST CHG CT SCAN,ABDOMENT AND PELVIS,W CONTRAST CHG CT SCAN,ABDOMENT AND PELVIS,COMBO Tami Johnson PA [address] [place] [phone] Phone: tel: fax: Referral ID Status Reason Start Date Expiration Date Visits Re quested Visits Authorized [id number] Closed 08/23/2024 09/21/2024 1 1 Encounter Details Date Type Department Care Team (Latest Contact Info) Description 08/24/2024 Transcribe Orders Virtual Department [address] [place] [address] Tami Johnson PA [address] [place] [phone] Abdominal pain, unspecified abdominal location (Primary Dx) Social History Tobacco Use [...] Description 05/21/2025 2:10 PM EST Office Visit [facility] Rheumatology [address] [place] [address] Marsha Power MD, MPH [address] [place] [phone] 06/04/2025 8:30 AM EST Infusion [facility] [address] [place] [address] Marsha Power MD, MPH [address] [place] [phone] documented as of this encounter Results * CT ABDOMEN/PELVIS WITH CONTRAST (09/06/2024 10:07 AM EDT) Anatomical Region Laterality Modality Abdomen, Pelvis Computed Tomogra phy 09/07/2024 5:08 PM EDT Impressions 09/07/2024 5:45 PM EDT 1. No acute findings within the abdomen or pelvis to explain patient's symptoms. Narrative 09/07/2024 5:[address] ABDOMEN/PELVIS WITH CONTRAST Referring clinician's provided indication for this examination in [facility]: Outside Radiology Order; abdomen pain TECHNIQUE: Multidetector-row CT of the abdomen and pelvis was performed after administration of intravenous contrast using tailored dose modulation techniques. Images were reconstructed in the axial, coronal, and sagittal planes. COMPARISON: FINDINGS: Lower Chest: Linear opacities, favored to represent atelectasis versus scarring. Minimal reticulation. No consolidation or pleural effusions. Liver: 2 mm hypoattenuating focus within segment 7 (series 3, image 16), too small to accurately characterize and statistically representing a cyst.. Biliary: No biliary ductal dilatation. Spleen: No splenomegaly. There is a hypoattenuating lesion measuring 10 mm the posterior medial spleen (series 3, image 15), present and 02/06/2022, slightly increased in size and favored to represent a cyst.. Pancreas: No masses or ductal dilatation. Adrenal Glands: No nodules. Kidneys/Ureters: No solid masses, stones, or hydronephrosis. Scattered subcentimeter hypoattenuating foci, too small to accurately characterize and statistically representing cysts. Bowel: Tiny hiatal hernia. There is no evidence of intestinal obstruction. Small periampullary duodenal diverticulum. Segment of the colon are collapsed and suboptimally assessed. Moderate volume fecal burden throughout the colon. Peritoneum/Retroperitoneum: No masses, pneumoperitoneum, or fluid. Lymph Nodes: No lymphadenopathy. Pelvic Organs/Bladder: No mass. Vessels: No abdominal aortic aneurysm. Mild to moderate atherosclerotic vascular calcification. Patent main portal vein. Bones/Soft Tissues: Multilevel degenerative changes of the thoracolumbar spine. Sclerotic focus in the right superior acetabulum, likely a bone island. Degenerative changes of the hips. Minimal anterolisthesis of L5 on. There are bilateral L5 pars defects. No destructive bony lytic or blastic lesions. Procedure Note Kisha Perez MD - 09/07/2024 CT ABDOMEN/PELVIS WITH CONTRAST Referring clinician's provided indication for this examination in [facility]:Outside Radiology Order; abdomen pain TECHNIQUE: Multidetector-row CT of the abdomen and pelvis was performedafter administration of intravenous contrast using tailored dosemodulation techniques. Images were reconstructed in the axial, coronal,and sagittal planes. COMPARISON: FINDINGS: Lower Chest: Linear opacities, favored to represent atelectasis versusscarring. Minimal reticulation. No consolidation or pleural effusions. Liver: 2 mm hypoattenuating focus within segment 7 (series 3, image 16),too small to accurately characterize and statistically representing acyst.. Biliary: No biliary ductal dilatation. Spleen: No splenomegaly. There is a hypoattenuating lesion measuring 10 mmthe posterior medial spleen (series 3, image 15), present and 02/06/2022,slightly increased in size and favored to represent a cyst.. Pancreas: No masses or ductal dilatation. Adrenal Glands: No nodules. Kidneys/Ureters: No solid masses, stones, or hydronephrosis. Scatteredsubcentimeter hypoattenuating foci, too small to accurately characterizeand statistically representing cysts. Bowel: Tiny hiatal hernia. There is no evidence of intestinal obstruction.Small periampullary duodenal diverticulum. Segment of the colon arecollapsed and suboptimally assessed. Moderate volume fecal burdenthroughout the colon. Peritoneum/Retroperitoneum: No masses, pneumoperitoneum, or fluid. Lymph Nodes: No lymphadenopathy. Pelvic Organs/Bladder: No mass. Vessels: No abdominal aortic aneurysm. Mild to moderate atheroscleroticvascular calcification. Patent main portal vein. Bones/Soft Tissues: Multilevel degenerative changes of the thoracolumbarspine. Sclerotic focus in the right superior acetabulum, likely a boneisland. Degenerative changes of the hips. Minimal anterolisthesis of L5on. There are bilateral L5 pars defects. No destructive bony lytic orblastic lesions. IMPRESSION: 1. No acute findings within the abdomen or pelvis to explain patient'ssymptoms. Tami KINSEY IMG CT ABD/PELVIS Final Re sult documented in this encounter Visit Diagnoses Diagnosis Abdominal pain, unspecified abdominal location- Primary Abdominal pain, unspecified abdominal location documented in this encounter Care Teams Gun Striper Relationship Specialty Start Date End Date Emeli Greenwood MD [address] [place] [phone] [email or web address] PCP - General Family Medicine 02/06/22 Eugene Oglesby MD [email or web address] Historical LMR Provider 03/16/17 documented as of this encounter Additional Source Comments The information contained in this document represents components of the legal health record. It is not the complete legal health record.[facility]
--- OUTSIDE RECORDS SUMMARY | 2025-03-28 17:37 | XMS_ITS | Encounter Summary ---
Author Organization [facility] Address [address] [place], [place] [id number] Phone Care Team Providers Care Insole Filler Name Role Phone Eugene Oglesby MD Unavailable [phone] Emeli Greenwood MD Primary Care Provider [phone] Reason for Referral * MRI/CAT Scan - Closed Specialty Diagnoses / Procedures Referred By Contac t Referred To Contact Radiology Diagnoses Radiculopathy, lumbar region Procedures MRI Lumbar Spine CHG MRI, LUMBAR SPINE CHG MRI, LUMBAR SPINE CONTRAST CHG MRI, LUMBAR SPINE COMBO Roxy Fuentes NP [address] [place] [phone] Phone: tel: fax: [email or web address] Referral ID Status Reason Start Date Expiration Date Visits Re quested Visits Authorized [id number] Closed 01/25/2025 02/23/2025 1 1 Encounter Details Date Type Department Care Team (Latest Contact Info) Description 01/26/2025 Transcribe Orders Virtual Department [address] [place] [address] Roxy Fuentes NP [address] [place] [phone] [email or web address] Radiculopathy, lumbar region (Primary Dx) Social History Tobacco Use [...] Description 05/21/2025 2:10 PM EST Office Visit [facility] Rheumatology [address] [place] [phone] Marsha Power MD, MPH [address] [place] [phone] 06/04/2025 8:30 AM EST Infusion [facility] [address] [place] [address] Marsha Power MD, MPH [address] [place] [phone] documented as of this encounter Results * MRI LUMBAR SPINE (NEURO) WITHOUT CONTRAST (02/07/2025 8:16 AM EDT) Anatomical Region Laterality Modality L-spine Magnetic Resonan ce 02/07/2025 1:21 PM EDT Impressions 02/07/2025 1:27 PM EDT 1. 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 Varying degrees of bilateral neural foramina narrowing as above. Narrative 02/07/2025 1:27 PM EDT MRI LUMBAR SPINE (NEURO) WITHOUT CONTRAST Referring clinician's provided indication for this examination in Epic: Outside Radiology Order; radiculopathy TECHNIQUE: MRI LUMBAR SPINE (NEURO) WITHOUT CONTRAST Multi-sequence, multi-planar MRI of the lumbar spine was performed without intravenous contrast. COMPARISON: Correlation is made to CT abdomen and pelvis dated September 06, 2024. FINDINGS: LUMBAR SPINE: Alignment and Vertebrae: There is straightening of lumbar lordosis. There is grade 1 anterolisthesis of L5 on S1, unchanged. Vertebral body heights are maintained without evidence of compression fracture. Bilateral pars interarticularis defects at L5- S1 is better visualized on the prior CT abdomen and pelvis. Marrow: No focal aggressive osseous lesions are identified. There are are benign fat-containing osseous lesions in T12, L1 and L2 vertebral bodies. Discs and Endplates: There is disc desiccation and disc height loss at L1-L2, L2-L3 and L5-S1. Annular fissure is seen at L1-L2. Conus: Conus medullaris terminates at T12-L1. The cauda equina nerve roots are unremarkable. Soft Tissues: The visualized retroperitoneum is unremarkable. The paraspinal musculature is unremarkable. Other Findings: None. Findings by level: T12-L1: No spinal or foraminal stenosis. L1-L2: Mild disc bulge with superimposed central disc protrusion and mild bilateral facet hypertrophy. Additionally, there is congenital spinal canal narrowing due to short pedicles. Overall, there is mild spinal canal stenosis. There is no neural foramina narrowing. L2-L3: There is mild diffuse disc bulge with superimposed left central disc protrusion, bilateral facet hypertrophy and congenital spinal canal narrowing due to short pedicles, resulting in [id number] spinal canal stenosis and effacement of left subarticular zone. There is mild left and dxsb-tp-[id number] right neural foramina narrowing. L3-L4: There is mild disc bulge with bilateral facet hypertrophy. There is mild spinal canal stenosis mainly due to congenital spinal canal narrowing. There is mild to moderate bilateral neural foramina narrowing. L4-L5: There is mild disc bulge with bilateral facet hypertrophy. There is no significant spinal canal stenosis. There is mild to moderate bilateral neural foramina narrowing. L5-S1: Unroofing of the disc is seen. There is diffuse disc bulge. Mild bilateral facet hypertrophy is seen. There is moderate bilateral neural foramina narrowing. Procedure Note Brandon Moore MD - 02/07/2025 MRI LUMBAR SPINE (NEURO) WITHOUT CONTRAST Referring clinician's provided indication for this examination in Epic:Outside Radiology Order; radiculopathy TECHNIQUE: MRI LUMBAR SPINE (NEURO) WITHOUT CONTRAST Multi-sequence, multi-planar MRI of the lumbar spine was performed withoutintravenous contrast. COMPARISON: Correlation is made to CT abdomen and pelvis dated August. FINDINGS: LUMBAR SPINE: Alignment and Vertebrae: There is straightening of lumbar lordosis. Thereis grade 1 anterolisthesis of L5 on S1, unchanged. Vertebral body heightsare maintained without evidence of compression fracture. Bilateral parsinterarticularis defects at L5- S1 is better visualized on the prior CTabdomen and pelvis. Marrow: No focal aggressive osseous lesions are identified. There are arebenign fat-containing osseous lesions in T12, L1 and L2 vertebralbodies. Discs and Endplates: There is disc desiccation and disc height loss atL1-L2, L2- L3 and L5-S1. Annular fissure is seen at L1-L2. Conus: Conus medullaris terminates at T12-L1. The cauda equina nerve rootsare unremarkable. Soft Tissues: The visualized retroperitoneum is unremarkable. Theparaspinal musculature is unremarkable. Other Findings: None. Findings by level: T12-L1: No spinal or foraminal stenosis. L1-L2: Mild disc bulge with superimposed central disc protrusion and mildbilateral facet hypertrophy. Additionally, there is congenital spinalcanal narrowing due to short pedicles. Overall, there is mild spinal canalstenosis. There is no neural foramina narrowing. L2-L3: There is mild diffuse disc bulge with superimposed left centraldisc protrusion, bilateral facet hypertrophy and congenital spinal canalnarrowing due to short pedicles, resulting in nihn-gw-yftbtyhn spinalcanal stenosis and effacement of left subarticular zone. There is mildleft and axjs-sh-cgznwpag right neural foramina narrowing. L3-L4: There is mild disc bulge with bilateral facet hypertrophy. There ismild spinal canal stenosis mainly due to congenital spinal canalnarrowing. There is mild to moderate bilateral neural foraminanarrowing. L4-L5: There is mild disc bulge with bilateral facet hypertrophy. There isno significant spinal canal stenosis. There is mild to moderate bilateralneural foramina narrowing. L5-S1: Unroofing of the disc is seen. There is diffuse disc bulge. Mildbilateral facet hypertrophy is seen. There is moderate bilateral neuralforamina narrowing. IMPRESSION: 1. 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 Varying degrees of bilateral neural foramina narrowing asabove. Roxy Fuentes NP IMG MR XSPECIALTY Final Result documented in this encounter Visit Diagnoses Diagnosis Radiculopathy, lumbar region- Primary Thoracic or lumbosacral neuritis or radiculitis, unspecified Radiculopathy, lumbar region Thoracic or lumbosacral neuritis or radiculitis, unspecified documented in this encounter Care Teams Insole Filler Relationship Specialty Start Date End Date Emeli Greenwood MD [address] [place] [phone] [email or web address] PCP - General Family Medicine 02/06/22 Eugene Oglesby MD [email or web address] Historical LMR Provider 03/16/17 documented as of this encounter Additional Source Comments The information contained in this document represents components of the legal health record. It is not the complete legal health record.[facility]
--- OUTSIDE RECORDS SUMMARY | 2025-03-28 17:37 | XMS_ITS | Clinical Summary ---
Author Organization [facility] Address [address] [place] [id number] Phone Care Team Providers Care Staff Interpreter Name Role Phone Eugene Oglesby MD Unavailable [phone] Emeli Greenwood MD Primary Care Provider [phone] Allergies Active Allergy Reactions Criticality Noted Date Comments Amitriptyline 08/04/2024 Amoxicillin Hives 08/04/2024 Clindamycin Hcl Lightheadedness 08/04/2024 Fluconazole Cramps Low 08/04/2024 Gabapentin 08/04/2024 Confusion Penicillins Anaphylaxis High 08/10/2012 Pravastatin Myalgia 08/04/2024 Rituximab-Pvvr 08/04/2024 Oral Tingling Terbinafine Anaphylaxis High 09/21/2012 stop breathing Medications acetaminophen (TYLENOL) 325 mg tablet Take 325 mg by mouth daily as needed for mild pain. Active polycarbophil (FIBERCON) 625 mg tablet Take 2 tablets by mouth daily. Active polyethylene glycol (GLYCOLAX) 17 gram packet Dose: Not available; Form: Not available; Route: PO; Frequency: QD; Directions: Each 17 GM dose to be dissolved in 8 oz of water; Details: Not available; Date: 08/10/2012 3 Active Medication-Shun e Text Fiber.daily Active RITUXIMAB IV 1 gram intravenously q 4 months Active cholecalcifero l (VITAMIN D3) 25 MCG (1,000 unit) tablet Take 1,000 Units by mouth daily. Active folic acid (FOLVITE) 1 MG tablet Take 1 mg by mouth daily. Active L.acidoph-L.bu lg-B.bif-S.the rm (BACID) 1 billion cell- 250 mg Tab Take 2 tablets by mouth daily. Active cyclobenzaprin e (FLEXERIL) 5 MG tablet Take 5 mg by mouth 3 (three) times a day as needed for muscle spasms. Rarely as needed Active DULoxetine (CYMBALTA) 20 MG capsuleIndicat ions:Chronic pain syndrome Take 1 capsule (20 mg total) by mouth every evening for 10 days, THEN 2 capsules (40 mg total) every evening for 20 days. Take with food. 50 capsule Active Additional Information Patient not taking.Reported on 11/20/2024 Active Problems Problem Noted Date Diagnosed Date Myalgia 11/03/2024 Assessment & Plan (11/03/2024 12:23 PM EDT): I do not have a rheumatology explanation for the dramatic improvement in myalgias with recent hldw-tyn-jghtxkq antihistamine dosing experienced by this patient. I [...] Sleep disorder 09/21/2012 Overview (09/22/2015): Sleep disorder Resolved Problems Problem Noted Date Diagnosed Date Resolved Date Sarcoidosis 12/13/2012 10/18/2015 Overview (09/22/2015): Sarcoidosis Uncoded H/O Psoriasis 12/13/20122015 Overview (07/21/2014): H/O Psoriasis Encounters Date Type Department Care Team Description 02/08/2025 8:30 AM EDT Infusion [facility] [address] [place] [id number] Emeli Greenwood MD Arthritis, rheumatoid (Primary Dx); Rheumatoid arthritis 02/08/2025 Orders Only [facility] [address] [place] [address] Marsha Power MD, MPH 02/08/2025 Telephone [facility] [address] [place] [address] [place] [address] Marsha Power MD, MPH 02/07/2025 7:27 AM EDT - 02/07/2025 11:59 PM EDT Hospital Encounter [address] [address] Roxy Fuentes NP Discharge Disposition: Home or Self Care 01/26/2025 Procedure Pass [address] [address] 01/26/2025 Transcribe Orders Virtual Department [address] [place] [phone] Roxy Fuentes NP Radiculopathy, lumbar region (Primary Dx) from Last 3 Months Family History Medical History Relation Comments COPD Father Other Father Atopic allergies ; fatal [place]; severe PAD (aorto-bifem bypass age 60) COPD Mother Other Mother Cholangiocarcino ma; severe PAD. Relation Status Comments Father Mother Social History Tobacco Use Types Packs/Day Years Used Date Smoking Tobacco: Never Smokeless Tobacco: Never Alcohol Use Standard Drinks/Week Comments Never 0 (1 standard drink = 0.6 oz pur e alcohol) Education Answer Date Recorded Are you interested in more education? Not on nane e 09/24/2022 Are you concerned about learning? [...] Not on file Not o n file Last Filed Vital Signs Vital Sign Reading Time Taken Comments Blood Pressure 115/67 02/08/2025 1:55 PM EDT Pulse 65 02/08/2025 1:55 PM EDT Temperature 36.5 C (97.7 F) 02/08/2025 1:55 PM EDT Respiratory Rate 18 02/08/2025 1:55 PM EDT Oxygen Saturation 98% 02/08/2025 1:55 PM EDT Inhaled Oxygen Concentration - - Weight 76.7 kg (169 lb) 11/03/2024 11:31 AM EDT Height 172.7 cm (5' 8 ) 08/21/2024 8:39 AM EDT Body Mass Index 25.7 08/21/2024 8:39 AM EDT Plan of Treatment Upcoming Encounters Date Type Department Care Team (Late st Contact Info) Description 05/21/2025 2:10 PM EST Office Visit [facility] Rheumatology [address] [place] [phone] Marsha Power MD, MPH [address] [place] [phone] 06/04/2025 8:30 AM EST Infusion [facility] [address] [place] [address] Marsha Power MD, MPH [address] [place] [phone] Health Maintenance Due Date Last Done Comments LIPID PANEL 1950 DEPRESSION SCREENING 1963 COLOGUARD 10/11/1996 FIT TEST 10/11/1996 FOBT 10/11/1996 SIGMOIDOSCOPY 10/11/1996 VIRTUAL COLONOSCOPY 10/11/1996 INFLUENZA VACCINE (#1) 2024 , 02/21/2023, 03/09/2022, Additional history exists COVID-19 VACCINE (2024- season) 2025 09/21/2024, 02/22/2024, 08/19/2023, Additional history exists Adult Td,Tdap Booster 05/22/2029 05/22/2019, 009 COLONOSCOPY 02/10/2032 02/09/2022 COLORECTAL CANCER SCREENING 02/10/2032 HEPATITIS C SCREENING Completed 09/20/2015 ZOSTER VACCINES Completed 01/19/2020, 07/04/2019 PNEUMOCOCCAL VACCINES (50+ years) Completed 06/26/2021, 02/10/2017, 07/03/2011 RSV VACCINE Completed 04/14/2023 SMOKING STATUS SCREENING (Once After 26 Yrs) Completed 11/03/2024 HEPATITIS A VACCINES Aged Out No long er eligible based on patient's age to complete this topic HIB VACCINES Aged Out No longer eligi ble based on patient's age to complete this topic MENINGOCOCCAL VACCINES (ACWY) Aged Out No longer eligible based on patient's age to complete this topic MENINGOCOCCAL VACCINES (B) Aged Out N o longer eligible based on patient's age to complete this topic Medical Devices Not on file Procedures Procedure Name Priority Date/Time Associated Diagnosis Comments MRI LUMBAR SPINE (NEURO) WITHOUT CONTRAST Routine 02/07/2025 8:16 AM EDT Radiculopathy, lumbar region ENDOSCOPY, COLON 02/09/2022 1:17 PM EDT from Last 3 Months or Most Recently Relevant to Health Maintenance Results * MRI LUMBAR SPINE (NEURO) WITHOUT [...] narrowing due to short pedicles, resulting in igdn-vu-wvvludgv spinal canal stenosis and effacement of left subarticular zone. There is mild left and vgud-cn-lkttlwwr right neural foramina narrowing. L3-L4: There is [...] canalnarrowing due to short pedicles, resulting in zopl-jp-ivvmmudc spinalcanal stenosis and effacement of left subarticular zone. There is mildleft and athr-qu-mejdmxin right neural foramina narrowing. L3-L4: There is [...] degrees of bilateral neural foramina narrowing asabove. us Roxy Fuentes [employer] HEATER HELPER IMG MR XSPECIALTY Final Result * ENDOSCOPY, COLON (02/09/2022 1:17 PM EDT) Narrative Transcriptions Marielena Rene MD - 02/09/2022 1:17 PM EDT Patient Name: Gus Villeda Attending MD:: MARIELENA RENE MD Procedure Date: 02/09/2022 1:17 PM Date of : 1950 Age: 71 Admit Type: Outpatient Gender: Male Room: [place] [address] Referring MD: Emeli Greenwood MD Exam Type: Colonoscopy Indications: Screening for colorectal malignant neoplasm, Last colonoscopy: July 2011 Medications: Monitored Anesthesia Care Procedure: Informed consent was obtained from the patientafter discussion of the indications, limitations, alternatives, benefits, and risks of the procedure. Risks specifically discussed include but are not limited to medication reactions, missed lesions, bleeding, perforation, or the need for emergent surgery. Throughout the procedure, the patient's blood pressure, pulse, end-tidal CO2, and oxygensaturations were monitored continuously. The Olympus pediatric variable [id number] #1 was introduced through the anus and advanced tothe cecum, identified by the appendiceal orifice, ileocecal valve and palpation. The colonoscopy was performed without difficulty. The patient tolerated the procedure well. The quality of the bowel preparation was good. The ileocecal valve,appendiceal orifice, and rectum were photographed. Complications: No immediate complications. Estimated blood loss:None. Findings: The perianal and digital rectal examinations were normal. Pertinent negatives include normalsphincter tone. Retroflexion in the right colon was performed. The exam was otherwise without abnormality ondirect and retroflexion views. Impression: - The examination was otherwise normal on directand retroflexion views. - No specimens collected. Recommendation: - No repeat colonoscopy due to current age (66years or older) and the absence of colonic polyps. MARIELENA RENE MD 02/09/2022 1:56:07 PM This report has been signed electronically. Number of Addenda: 0 Note Initiated On: 02/09/2022 1:17 PM Procedure Code(s): --- Professional --- G0121, Colorectal cancer screening; colonoscopy on individual not meeting criteria for high risk --- Technical --- G0121, Colorectal cancer screening; colonoscopy on individual not meeting criteria for high risk Diagnosis Code(s): --- Professional --- Z12.11, Encounter for screening for malignantneoplasm of colon --- Technical --- Z12.11, Encounter for screening for malignantneoplasm of colon CPT copyright 2020 [employer]. All rights reserved. The codes documented in this report are preliminary and upon roller checker reviewmay be revised to meet current compliance requirements. Procedure Date: 02/09/2022 1:17:48 PM [address] [place] [address] Emeli Greenwood MD GI PROCEDURE ORDERABLES Fin al Result from Last 3 Months or Most Recently Relevant to Health Maintenance Insurance Care Teams Staff Interpreter Relationship Specialty Start Date End Date Emeli Greenwood MD [address] [place] [phone] [email or web address] PCP - General Family Medicine 02/06/22 Eugene Oglesby MD [email or web address] Historical LMR Provider 03/16/17 Additional Source Comments The information contained in this document represents components of the legal health record. It is not the complete legal health record.[facility]
== END 2025-03-28 14:59 | disposition home or self-care (01) ==
LOC: HO.HNS 13:47
PROVIDERS: PCP Family Medicine; Referring Provider Physical Medicine & Rehabilitation; Visit Provider Neurological Surgery
DX: M54.16 Radiculopathy, lumbar region (principal)
CPT/HCPCS: 99204